=== PATIENT | female | born 1985 | race Caucasian/White ===

== ENCOUNTER 2019-06-17 12:28 | Outpatient (CLI) | payer SELFPAY | END 2019-06-17 14:05 | PROVIDERS: Family Provider Family Medicine; Visit Provider Obstetrics & Gynecology | DX: O26.899 Other specified pregnancy related conditions, unspecified trimester (principal); Z3A.00 Weeks of gestation of pregnancy not specified; N89.8 Other specified noninflammatory disorders of vagina | CPT/HCPCS: 76815; 81001; 99211 ×2 ==

== ENCOUNTER → 2019-07-21 16:09 | Outpatient (BNVA) | payer BC, MEDICAID, SELFPAY | PROVIDERS: Family Provider Family Medicine; PCP Family Medicine; Visit Provider Obstetrics & Gynecology | DX: Z34.83 Encounter for supervision of other normal pregnancy, third trimester (principal) | CPT/HCPCS: 82950; 84315; 85027 ==

== ENCOUNTER → 2019-08-04 15:11 | Outpatient (BNVA) | payer BC, MEDICAID, SELFPAY | PROVIDERS: Family Provider Family Medicine; PCP Family Medicine; Visit Provider Obstetrics & Gynecology | DX: Z01.89 Encounter for other specified special examinations (principal) | CPT/HCPCS: 84315 ==

== ENCOUNTER → 2019-08-18 15:26 | Outpatient (BNVA) | payer BC, MEDICAID, SELFPAY | PROVIDERS: Family Provider Family Medicine; PCP Family Medicine; Visit Provider Obstetrics & Gynecology | DX: Z01.89 Encounter for other specified special examinations (principal) | CPT/HCPCS: 84315 ==

== ENCOUNTER → 2019-09-02 13:58 | Outpatient (BNVA) | payer BC, MEDICAID, SELFPAY | PROVIDERS: Family Provider Family Medicine; PCP Family Medicine; Visit Provider Nurse Practitioner Women's Health | DX: Z01.89 Encounter for other specified special examinations (principal) | CPT/HCPCS: 84315 ==

== ENCOUNTER → 2019-09-15 15:23 | Outpatient (BNVA) | payer MEDICAID, SELFPAY | PROVIDERS: Family Provider Family Medicine; PCP Family Medicine; Visit Provider Obstetrics & Gynecology | DX: Z34.83 Encounter for supervision of other normal pregnancy, third trimester (principal) | CPT/HCPCS: 84315; 87081 ==

== ENCOUNTER → 2019-09-18 15:59 | Outpatient (BNVA) | payer MEDICAID, SELFPAY | PROVIDERS: Family Provider Family Medicine; PCP Family Medicine; Visit Provider Obstetrics & Gynecology | DX: Z34.83 Encounter for supervision of other normal pregnancy, third trimester (principal); O34.211 Maternal care for low transverse scar from previous cesarean delivery | CPT/HCPCS: 76816 ==

== ENCOUNTER → 2019-09-22 11:26 | Outpatient (BNVA) | payer BC, MEDICAID, SELFPAY | PROVIDERS: Family Provider Family Medicine; PCP Family Medicine; Visit Provider Obstetrics & Gynecology | DX: Z46.89 Encounter for fitting and adjustment of other specified devices (principal) | CPT/HCPCS: 84315 ==

== ENCOUNTER 2019-09-23 06:14 | Observation (INO) | payer MEDICAID, SELFPAY ==
[2019-09-23 06:37] VITALS: RESP 18; TEMP 36.7
[2019-09-23 06:39] VITALS: BMI 30.7
--- NOTE | 2019-09-23 06:41 | PC.NURSE ---
Bedside ultrasound performed at this time, breech presentation noted
[2019-09-23 07:02] LABS: Basophils % 0.3 %; Eosinophils # 0.2 10^3/uL (0.0-0.8); Eosinophils % 1.5 %; Hemoglobin 11.6 g/dL (11.5-15.3); Lymphocytes # 1.7 10^3/uL (0.8-4.8); Lymphocytes % 14.9 %; Mean Corpuscular HGB Conc 31.4 g/dL (30.0-36.0); Mean Corpuscular Hemoglobin 26.4 pg (28.0-34.0); Mean Corpuscular Volume 84.1 fL (81-99); Mean Platelet Volume 10.4 fL (7.4-10.4); Monocytes # 0.9 10^3/uL (0.2-0.9); Monocytes % 7.7 %; Neutrophils # 8.7 10^3/uL (1.8-7.7); Neutrophils % 74.1 %; Nucleated Red Blood Cells % 0 %; Platelet Count 280 10^3/cmm (130-400); Red Cell Distribution Width 14.1 % (12.1-15.1); White Blood Count 11.7 10^3/uL (4.0-10.0)
[2019-09-23] MEDS: terbutaline 1 mg/mL INJ 0.25 MG SUBCUT (08:12)
--- NOTE | 2019-09-23 09:07 | PC.NURSE ---
Lex Florentino RN and this insurance underwriter sales in pt room at 0823 at bedside to set up and start version,pt was then prepped with ultrasound gel on abdomen to check placement of fetus, fetus head was breech with feet next to the head. 0825 with the help of the ultrasound machine to locate heart rate and head placement, placed her hands on abdomen with gel and started the version. every 2 minutes we would check fetus heart rate and head placement.version complete at 0832
[2019-09-23 11:53] VITALS: BP 111/64; PULSE 105; RESP 18; TEMP 36.8
--- NOTE | 2019-09-23 14:53 | P.PCN_ITS ---
Procedure/Consent Consent: Consent for Procedure: Consent obtained from patient Procedure Narrative: Ms. Charlton is a 34-year-old 4 para 3-0-0-3 at 37 weeks and 3 days gestation who presented to labor and delivery for scheduled external cephalic version. Her history significant for previous delivery x1 and she desired . Her baby was in a santos breech presentation with adequate fluid and appropriate for gestational age and after extensive co unseling she desired to proceed with external cephalic version as she was very motivated to try to have a baby vaginally. The procedure, risks benefits and alternatives were discussed with her informed consent was obtained -She presented n.p.o. to labor and delivery on 09/23/2019 for scheduled procedure and had no new complaints. -Bedside scanning she was noted to be breech. tracing was reactive- category 1 tracing. She had no contractions on the monitor. -She was given a single dose of terbutaline subcutaneously and after 10 minutes we presented to bedside. Vital signs were stable and tracing was category 1. Monitors were removed from the patient's abdomen and lubricant was generously applied on the abdomen. The breech was grasped with the right hand and at the head with the left hand and the ultrasound probe was placed over the belly over the heart and good movement was noted. In a clockwise movement taking care not to cause too much pain the breech was elevated and moved. This was done consistently although while monitoring heart rate which was noted to be within normal limits. The baby shifted to cephalic presentation. Sonogram done confirm cephalic presentation. Heart rate was noted to be in the 150s during the procedure and patient was placed back on the monitor and category 1 tracing was noted. Patient tolerated the procedure well. -She was observed on labor and delivery for 3 additional hours after the procedure and during this time continue to remain category 1 and had no pain, vaginal bleeding or abnormal discharge. There were no contractions noted on the monitor. -She was discharged home in a stable condition with plans to perform BPP on 09/25/2019. -She was given precautions for the emergency room, vaginal bleeding, abruption and premature rupture of membranes -Follow-up as scheduled for doctor's appointment.
== END 2019-09-23 12:09 | disposition home or self-care (01) ==
PROVIDERS: Admitting Provider Obstetrics & Gynecology; Family Provider Family Medicine; PCP Family Medicine; Visit Provider Obstetrics & Gynecology
DX: O32.1XX0 Maternal care for breech presentation, not applicable or unspecified (principal); Z3A.37 37 weeks gestation of pregnancy
CPT/HCPCS: 59412; 12345; 59025; 85025; 96372; 99211; G0378; G0379; J3105

== ENCOUNTER → 2019-09-25 10:14 | Outpatient (BNVA) | payer MEDICAID, SELFPAY | PROVIDERS: Family Provider Family Medicine; PCP Family Medicine; Visit Provider Obstetrics & Gynecology | DX: Z36.89 Encounter for other specified antenatal screening (principal) | CPT/HCPCS: 76816; 76819 ==

== ENCOUNTER → 2019-09-29 13:30 | Outpatient (BNVA) | payer BC, MEDICAID, SELFPAY | PROVIDERS: Family Provider Family Medicine; PCP Family Medicine; Visit Provider Obstetrics & Gynecology | DX: Z01.89 Encounter for other specified special examinations (principal) | CPT/HCPCS: 84315 ==

== ENCOUNTER → 2019-10-06 14:22 | Outpatient (BNVA) | payer MEDICAID, BC, SELFPAY | PROVIDERS: Family Provider Family Medicine; PCP Family Medicine; Visit Provider Obstetrics & Gynecology | DX: Z34.83 Encounter for supervision of other normal pregnancy, third trimester (principal) | CPT/HCPCS: 84315 ==

== ENCOUNTER 2019-10-17 03:00 | Inpatient (IN) | payer BC, MEDICAID, SELFPAY ==
[2019-10-17] VITALS (100 sets, daily range): BP systolic 0–150; BP diastolic 0–92; PULSE 75–122; RESP 15–18; TEMP 36.4–37.2; O2SAT 85–100; BMI 30.7
[2019-10-17 03:36] LABS: Basophils % 0.2 %; Eosinophils # 0.1 10^3/uL (0.0-0.8); Eosinophils % 0.9 %; Hematocrit 36.8 % (37.0-47.0); Hemoglobin 11.7 g/dL (11.5-15.3); Lymphocytes # 2.6 10^3/uL (0.8-4.8); Lymphocytes % 21.2 %; Mean Corpuscular HGB Conc 31.8 g/dL (30.0-36.0); Mean Corpuscular Hemoglobin 26.7 pg (28.0-34.0); Mean Corpuscular Volume 83.8 fL (81-99); Mean Platelet Volume 11.2 fL (7.4-10.4); Monocytes # 0.8 10^3/uL (0.2-0.9); Monocytes % 6.4 %; Neutrophils # 8.4 10^3/uL (1.8-7.7); Neutrophils % 70.1 %; Nucleated Red Blood Cells % 0 %; Platelet Count 267 10^3/cmm (130-400); Red Blood Count 4.39 10^6/uL (4.1-5.3); Red Cell Distribution Width 14.9 % (12.1-15.1)
[2019-10-17 04:09] LABS: Nitrazine Paper, PH Positive
--- NOTE | 2019-10-17 09:17 | P.HP_ITS ---
Providers/Chief Complaint Admitting Physician: Yonis Langley MD Primary SAFETY ADVISOR: Yonis Langley MD Primary Care Provider: Daisy Doherty MD Chief Complaint: poss rupture of membrane HPI SAFETY ADVISOR History of Present Illness Dianna Charlton is a 34 year old female white female 4, Para 3-0-0-3 with an LMP of 01/03/2019 and EDC of 10/10/2019 based on LMP and consistent with 20-week ultrasound, which places her at 41-0/7 weeks gestation. She presented to labor and delivery this morning, 10/17/2019, at 02:50 with a complaint of possible leaking of fluid. She reported feeling a gush of fluid and is continued to leak afterwards. On evaluation, she was found to be grossly ruptured. Cervical exam at the time by the nurse was reported to be 4 cm dilation, 80% effacement, and a -3 station. She was connie every 1 to 4 minutes at the time and contractions have switched to approximately 2 to 4 minutes in timing. She denies bright red bleeding, but has noticed a pinkish discharge today. She states she is continued to leak fluid. She reports contractions are getting stronger but not to the point that she is wanting anything from pain standpoint. She reports baby has been moving well. LABS 07/04/2012: Cystic fibrosis: Screen negative. 03/21/2019 Blood type: O positive. Antibody screen: Negative. Intake CBC: WBC 10.5, Hgb 12.5, Hct 36.7, MCV 82.7, Plt 331. Rubella: Immune (22). Hepatitis B surface antigen: Negative. Hepatitis C antibody: Negative. RPR: Nonreactive. HIV: Negative. Urine drug screen: Negative. Urine culture: 40-50,000 CFU, mixed organisms. 04/04/2019 Gonorrhea: Negative. Chlamydia: Negative. Pap smear: Negative for intraepithelial lesion or malignancy. Parvovirus IgG-4.7-[id number]-wfketymu Parvovirus IgM 0.6-bwwsfqfh-no acute infection 04/30/2019 Quad screen: Declined 07/21/2019 28 week CBC: WBC 11.2, Hgb 11.0, Hct 35.0, MCV 87.9, Plt 285. GCT: 136. 3/ GBS: negative OB ULTRASOUND LMP 01/03/2019 ---> EDC 10/10/2019. 1. 05/28/2019 ---> 20-2/7 WG ---> EDC 10/13/2019. EFW 12 oz. (344 g) 25%. Performed at [facility]. Consistent with dates. Normal anatomic survey. Male. Cephalic. FHR 150 bpm. Anterior placenta without previa. Grade 1. Visually normal amniotic fluid volume. INSPECTOR CIRCUITRY NEGATIVE 6.0 cm. Cervix 5.7 cm. 2. 06/17/[address] ( [facility] bleeding/pain[place] SLIP; breech presentation; cervix measures 6.25 cm; placenta is anterior grade 0; FEDE adequate; FHR 150 bpm 3) 09/18/19([facility]-breech) AUA-36w6d RADHA by sono-10/10/19 S=D ------> single live intrauterine , santos breech presentation, anterior grade 1 placenta without previa, FEDE 18.8 cm, INSPECTOR CIRCUITRY NEGATIVE 5.3 cm, EFW 3090 g, cervix is closed measuring 6 cm Review of Systems Const: Denies: fever or chills ENMT: Denies: throat pain or nasal congestion Card: Denies: chest pain, palpitations or lightheadedness Resp: Denies: shortness of breath, productive cough, non-productive cough or wheezing GI: Reports: abdominal pain (With contractions); Denies: nausea or vomiting : Reports: urinary frequency and vaginal bleeding; Denies: difficulty urinating or painful urination Neuro: Denies: headache, dizziness or seizure-like activity Psych: Denies: anxiety or depression Endo: Denies: excessive urination, excessive thirst or cold intolerance Merlin/Lymph: Denies: easy bruising or easy bleeding Medications/Allergies Home Medications Medication Instructions Recorded Confirmed Last Taken Type prenat.vits,adolfo,usj-oxuh-rpsck 1 tab PO DAILY tab 06/25/19 10/17/19 10/16/19 09:00 History Allergies Allergy/AdvReac Type Severity Reaction Status Date / Time amoxicillin Allergy Rash Verified 10/13/19 14:20 Sulfa (Sulfonamide Allergy Rash Verified 10/13/19 14:20 Antibiotics) PFSH SAFETY ADVISOR PFSH: Medical History Blood type O+ Surgical History Previous section (01/10/13) Low transverse section. Diagnosis: Santos breech, Unsuccessful version. Per[place] Dr. Yonis Langley [place] [facility] [place], [place]. Confirmed LTCS with 2 layer closure. Family History Mother Hypertension Family/Other Breast cancer Maternal great aunt Father Hypertension Grandfather Heart disease Paternal and maternal Stroke maternal Social History Smoking and tobacco status: never smoked Alcohol intake: never Substance/Drug Use: never Additional social history: Well balanced diet Other Female Reproductive History: Hx Age of Menarche: 14 Duration of menses: other (5 days) Date of Last Menstrual Period: 01/03/19 Cycle Length: every 35-38 days Menstrual flow: normal/abnormal: normal History History History 4 Term 3 Miscarriages/Ectopic 0 0 Living Children 3 Past Pregnancies Del. Date GA/Weeks Outcome Route Wt Inf Gender Labor Lgth Comp. Anesth esia Location 06/01/10 40 live - full term Vaginal 7 lb 5 oz Female 01/10/13 39 live - full term 7 lb 7 oz Female 11/15/17 40 live - full term 8 lb 10 oz Male Delivery Date: 06/01/10 On 06/25/19 @ 09:14 Cris Mcdonough Epidural anesthesia, no complications. Delivered by Dr. Yonis Langley at [facility] in [place], [place] Delivery Date: 01/10/13 On 06/25/19 @ 09:17 Cris Mcdonough delivery with spinal anesthesia, performed for santos breech presentation with unsuccessful version. Delivered by Dr. Yonis Langley at [facility] in [place], [place]. Delivery Date: 11/15/17 On 06/25/19 @ 09:20 Cris Mcdonough Epidural. Vacuum assisted vaginal delivery (). Delivered by Dr. Agosto at [facility] in [place], [place]. bradycardia with pushing resulting in use of Kiwi vacuum. Care RADHA Calculator Estimated Delivery Date Method Current WG Current Estimate 10/10/19 LMP (Certain) 41w 0d Other Estimates 10/13/19 Ultrasound #1 40w 4d Expected Delivery Route/Plan desires Specific Issues/Plans * Previous LTCS with successful OB Visit Log Initial Weight: 168 lb Date -?-?-?-?-?-?-?-?-?-?-?- EGA Weight BP Albumin -?-?-?-?-?-?-?-?-?-?-?-?- Glucose Nitrate -?-?-?-?-?-?-?-?-?-?-?-?- Blood Fun Ht PRES HR MVMT -?-?-?-?-?-?-?-?-?-?- Edema Dilation Effacement -?-?-?-?-?-?-?-?-?-?-?- Station 03/07/19 -?-?-?-?-?-?-?-?-?-?-?- 9w 0d 168 lb (+0 oz) 133/80 Trace/Normal -?-?-?-?-?-?-?-?-?-?-?-?- Negative -?-?-?-?-?-?-?-?-?-?-?-?- -?-?-?-?-?-?-?-?-?-?- None -?-?-?-?-?-?-?-?-?-?-?- 03/21/19 -?-?-?-?-?-?-?-?-?-?-?- 11w 0d 169 lb (+16 oz) 116/68 Negative/Normal -?-?-?-?-?-?-?-?-?-?-?-?- Negative -?-?-?-?-?-?-?-?-?-?-?-?- 172 -?-?-?-?-?-?-?-?-?-?- None -?-?-?-?-?-?-?-?-?-?-?- 04/04/19 -?-?-?-?-?-?-?-?-?-?-?- 13w 0d 172 lb (+4 lb) 118/78 Negative/Normal -?-?-?-?-?-?-?-?-?-?-?-?- Negative -?-?-?-?-?-?-?-?-?-?-?-?- 154 -?-?-?-?-?-?-?-?-?-?- None Closed Uneffaced -?-?-?-?-?-?-?-?-?-?-?- 04/30/19 -?-?-?-?-?-?-?-?-?-?-?- 16w 5d 175 lb (+7 lb) 100/62 Negative/Normal -?-?-?-?-?-?-?-?-?-?-?-?- Negative -?-?-?-?-?-?-?-?-?-?-?-?- 147 None -?-?-?-?-?-?-?-?-?-?- None -?-?-?-?-?-?-?-?-?-?-?- 05/30/19 -?-?-?-?-?-?-?-?-?-?-?- 21w 0d 182 lb (+14 lb) 112/78 Negative/Normal -?-?-?-?-?-?-?-?-?-?-?-?- Negative -?-?-?-?-?-?-?-?-?-?-?-?- 145 Present -?-?-?-?-?-?-?-?-?-?- None -?-?-?-?-?-?-?-?-?-?-?- 06/27/19 -?-?-?-?-?-?-?-?-?-?-?- 25w 0d 182 lb (+14 lb) 118/70 Neg (Negative ) -?-?-?-?-?-?-?-?-?-?-?-?- Norm (Normal) Negative (Negat stefan) -?-?-?-?-?-?-?-?-?-?-?-?- 156 25 156 active -?-?-?-?-?-?-?-?-?--?- absent -?-?-?-?-?-?-?-?-?-?-?- 07/21/19 -?-?-?-?--?-?-?-?-?-?-?- 28w 3d 188 lb 6 oz (+20 lb 6 oz) 118/74 1+ (Negati ve) H -?-?-?-?-?-?-?-?-?-?-?-?- Norm (Normal) Negative (Negat stefan) -?-?-?-?-?-?-?-?-?-?-?-?- 30 142 active -?-?-?-?-?-?-?-?-?-?- absent -?-?-?-?-?-?-?-?-?-?-?- 08/04/19 -?-?-?-?-?-?-?-?-?-?-?- 30w 3d 190 lb 2 oz (+22 lb 2 oz) 114/72 Trace (Neg ative) -?-?-?-?-?-?-?-?-?-?-?-?- Norm (Normal) Negative (Negat stefan) -?-?-?-?-?-?-?-?-?-?-?-?- 31 159 active -?-?-?-?-?-?-?-?-?-?- absent -?-?-?-?-?-?-?-?-?-?-?- 08/18/19 -?-?-?-?-?-?-?-?-?-?-?- 32w 3d 193 lb (+25 lb) 118/78 Neg (Negative ) -?-?-?-?-?-?-?-?-?-?-?-?- Norm (Normal) Negative (Negat stefan) -?-?-?-?-?-?-?-?-?-?-?-?- Neg (Negative) 33 139 act stefan -?-?-?-?-?-?-?-?-?-?- absent -?-?-?-?-?-?-?-?--?-?-?- 09/02/19 -?-?-?-?-?-?-?-?-?-?-?- 34w 4d 195 lb (+27 lb) 118/80 Neg (Negative ) -?-?-?-?-?-?-?-?-?-?-?-?- Norm (Normal) Negative (Negat stefan) -?-?-?-?-?-?-?-?-?-?-?-?- Neg (Negative) 35 138 act stefan -?-?-?-?-?-?-?-?-?-?- absent -?-?-?-?-?-?-?-?-?-?-?- 09/15/19 -?-?-?-?-?-?-?-?-?-?-?- 36w 3d 196 lb (+28 lb) 110/70 Neg (Negative ) -?-?-?-?-?-?-?-?-?-?-?-?- Norm (Normal) Negative (Negat stefan) -?-?-?-?-?-?-?-?-?-?-?-?- Neg (Negative) 36.5 Breech 140 active -?-?-?-?-?-?-?-?-?-?- Absent Fingertip 0 -?-?-?-?-?-?-?-?-?-?-?- 09/22/19 -?-?-?-?-?-?-?-?-?-?-?- 37w 3d 196 lb (+28 lb) 128/78 Trace (Negati ve) -?-?-?-?-?-?-?-?-?-?-?-?- Norm (Normal) Negative (Negat stefan) -?-?-?-?-?-?-?-?-?-?-?-?- Neg (Negative) 38 Breech 152 active -?-?-?-?-?-?-?-?-?-?- absent Fingertip 0 -?-?-?-?-?-?-?-?--?-?-?- 09/29/19 -?-?-?-?-?-?-?-?-?-?-?- 38w 3d 199 lb (+31 lb) 124/70 Neg (Negative ) -?-?-?-?-?-?-?-?-?-?-?-?- Norm (Normal) Negative (Negat stefan) -?-?-?-?-?-?-?-?-?-?-?-?- Neg (Negative) 36.8 Vertex 136 active -?-?-?-?-?-?-?-?-?-?- trace Fingertip 0 -?-?--?-?-?-?-?-?-?-?-?- -4 10/06/19 -?-?-?-?-?-?-?-?-?-?-?- 39w 3d 199 lb 4 oz (+31 lb 4 oz) 118/74 Neg (Negat stefan) -?-?-?-?-?-?-?-?-?-?-?-?- Norm (Normal) Negative (Negat stefan) -?-?-?-?-?-?-?-?-?-?-?-?- Neg (Negative) 36.5 38.5 vertex 133 active -?-?-?-?-?-?-?-?-?-?- trace 1 0 -?-?-?-?-?-?-?-?-?-?-?- -5 10/13/19 -?-?-?-?-?-?-?-?-?-?-?- 40w 3d 201 lb 4 oz (+33 lb 4 oz) 120/88 Neg (Negat stefan) -?--?-?-?-?-?-?-?-?-?-?-?- Norm (Normal) Negative (Negat stefan) -?-?-?-?-?-?-?-?-?-?-?-?- Neg (Negative) 39 vertex 136 active -?-?-?-?-?-?-?-?-?-?- trace 1 0 -?-?-?-?-?-?-?-?-?-?-?- -3 10/17/19 -?-?-?-?-?-?-?-?-?-?-?- 41w 0d 196 lb (+28 lb) 196 lb (+28 lb) 129/92 129/83 0/0 136/80 0/0 117/57 0/0 0/0 109/66 112/59 113/71 119/75 116/74 -?-?-?-?-?-?-?-?-?-?-?-?- -?-?-?-?-?-?-?-?-?-?-?-?- Vertex Vertex Vertex Vertex 140 140 135 135 135 130 -?-?-?-?-?-?-?-?-?-?- -?-?-?-?-?-?-?-?-?-?-?- -3 -3 -3 -2 Notes Visit Date: 10/17/19 No visit notes to display Visit Date: 10/13/19 No visit notes to display Visit Date: 10/06/19 tawnya prather MD on 10/06/19 Visit Date: 09/29/19 ELAINE at 38+3 weeks status post external cephalic version last week. Infant continued to be in vertex presentation. Labor precautions given. Cornelio Agosto MD on 09/29/19 Visit Date: 09/22/19 ELAINE@ 37w3d----> vulvar pruritus-yeast infection-prescription Diflucan; previous delivery x1-desires ; santos breech presentation-version versus repeat discussed and patient desires version which was schedule d for 09/23/2019-counseling done; GBS negative Heather Wick MD on 09/22/19 Visit Date: 09/15/19 ELAINE@ 36w3d----> no complaints; previous delivery x1 with 1 successful -desires ; GBS today; santos breech presentation today-repeat sonogram at 37 weeks-ECV versus repeat discussed and information provided to patient-patient likely desires ECV Heather Wick MD on 09/21/19 Visit Date: 09/02/19 ELAINE at 34.4 WG-----> Travel restrictions discussed. labor precautions reviewed. Kick counts reviewed and encouraged. Repeat --planning . GBS at next visit. Strongly recommended social distancing and limited exposure outside of the home. Cris Oliva APN, WHEDGARDO on 09/02/19 Visit Date: 08/18/19 ROP at 32-3/7 weeks gestation. labor precautions discussed with patient. Pelvic pressure and discomfort discussed. Yonis Langley MD on 08/22/19 Visit Date: 08/04/19 No visit notes to display Visit Date: 07/21/19 No visit notes to display Visit Date: 06/27/19 No visit notes to display Visit Date: 05/30/19 ELAINE at 21-0/7 WG. ?No complaints. ?Flu vaccine recommended. ?Screening ultrasound reviewed and was preliminarily normal. Visit Date: 04/30/19 ELAINE @ 16w 5d-----> no complaints; previous delivery ?1- considering trial of labor; declined quad; parvovirus testing reviewed with patient; negative gonorrhea and Chlamydia and Pap smear; anatomy sonogram prior to next visit; SAB precautions reviewed Visit Date: 04/04/19 OB exam at 13-0/7 WG. ?Consistent with dates. ?Pap, GC, Chlamydia today. ?Possible exposure to fifth's disease. ?Antibody testing performed. Visit Date: 03/21/19 OB visit at 11-0/7 WG based on LMP. ?No complaints. ? labs drawn. ?Prior LTCS with successful . ?Considering again. ?Considering sterilization. ?OB exam in approximately 2 weeks. Visit Date: 03/07/19 OBI at 9.0 WG------> 34 y/o with LMP of 01/03/19 and EDC of 10/10/19 -Previous C/S with successful to follow; last delivery was with vaccuum assistance -Ob packet provided. Reviewed routine vist schedule, labs, approved medications in , discussed the importance of avoiding nicotine/alcohol/drugs and the effects this has on her and the , and when to notify the doctor. Medical and obstetrical history reviewed. ? -Continue vitamins. -Mild nausea; dietary and medical management discussed - labs at next visit; discussed NIPT, QUAD, AFP, CF. All questions answered to her satisfaction. Greater than 50% of the visit was spent in counseling and coordinating obstetrical care. Vitals/I&O/Wt Last Vital Signs Temp 98.1 F 10/17/19 09:02 Pulse 97 10/17/19 08:47 Resp 16 10/17/19 09:02 BP 119/75 10/17/19 08:47 10/16/19 10/17/19 10/17/19 22:59 06:59 14:59 Output Total 250 / 250 Balance -250 / -250 Weight last 48 hrs Weight 196 lb Weight 196 lb Physical Exam Const: COMMON NORMALS: no apparent distress, average body habitus, alert and well nourished GENERAL APPEARANCE: well developed ORIENTATION/CONSCIOUSNESS: Yes oriented to person, Yes oriented to place and Yes oriented to time Neck/C-Spine: COMMON NORMALS: thyroid normal GENERAL: Yes trachea midline THYROID: thyroid normal Resp: COMMON NORMALS: normal respiratory effort and clear to auscultation bilaterally AUSCULTATION: clear to auscultation bilaterally Cardio: COMMON NORMALS: regular rate, regular rhythm, no gallops, no murmurs and no rub RATE: regular rate RHYTHM: regular rhythm GI: COMMON NORMALS: soft to palpation, non-tender, no hepatosplenomegaly and no masses (Except for gravid uterus.) INSPECTION: Yes gravid abdomen AUSCULTATION: Yes normoactive bowel sounds PALPATION: Yes soft, Yes no hepatosplenomegaly and No hernia : EXTERNAL FEMALE EXAM: No hernia OTHER: External genitalia: Normal in appearance with no lesions seen. Normal hair distribution. Anus/perineum: No perineal lesions noted. Urethral meatus: Normal in size and location with no lesions or prolapse noted Urethra: Nontender with no palpable masses noted. Bladder: Nontender with no palpable masses noted. Vagina: No palpable masses. Cervix: 4 to 5 cm dilated, 70% effaced, -2 station, soft, mid position. Fluid leaked during the exam. Uterus: Gravid and nontender. Adnexa: Not palpable Neuro: SENSORIUM/ORIENTATION: Yes alert, Yes oriented to person, Yes oriented to place and Yes oriented to time Psych: COMMON NORMALS: affect normal MOOD & AFFECT: Yes euthymic mood Skin: COMMON NORMALS: no rashes or lesions noted GENERAL SKIN EXAM: no rashes or lesions noted Data : 10/17/19 03:25 Other data: MONITORING: heart rate in the 140s with moderate variability and accelerations present which meet reactivity. No decelerations noted. This is a category 1 tracing. Contractions are every 2-1/2 to 4 minutes. A&P Assessment and plan (1) Maternal care due to low transverse uterine scar from previous delivery: Patient is at 41-0/7 weeks gestation today. She was originally scheduled to be induced today for postterm . However, she presented to labor and delivery early this morning with complaint of leaking of fluid and was found to be grossly ruptured. She is connie regularly, but fairly mildly at this time. She has had a prior section for santos breech presentation and has had a successful vaginal after section () following that. She had had a vaginal delivery prior to the as well. She is considered a good candidate for a and wishes to attempt this again. Risks of versus repeat section had been previously discussed and was reviewed today with the patient and her partner. Questions were answered. They still wish to proceed with . Potential augmentation of labor was discussed with them. Risks of Pitocin use with prior section had been previously discussed in the office and reviewed today. Anesthesia options were reviewed and at this time, she is not interested in any type of pain medication. She is considering an epidural for later in the labor course. Questions were answered. Patient and her partner are in agreement with the plan of care regarding attempted and labor augmentation with Pitocin if needed. Status: Acute Attestations Medical Necessity Statement*: Patient is in labor with her water broke. Coding Level of Care Code Acute Christian Counselor for Francie Phelps Diagnoses Maternal care due to low transverse uterine scar from previous delivery O34.211
[2019-10-17] MEDS: oxytocin 30 UNIT/500 ML BAG IV (12:06)
[2019-10-17] MEDS: dextrose 5%-lactated ringers 1,000 ML 125 ML IV (12:06)
[2019-10-17] MEDS: lactated ringers 1,000 ML 999 ML IV ×2 (12:29→13:36)
--- NOTE | 2019-10-17 12:34 | PC.NURSE ---
lr bolus started for epidural
[2019-10-17] MEDS: fentaNYL 50 mcg/mL INJ 2mL IV (12:47)
--- NOTE | 2019-10-17 13:40 | ANES.PREANE2 ---
Pre-Anesthetic Assessment Pre-Anesthetic Assessment: Height/Weight: Height 1.7 m Weight 88.904 kg Temp Pulse Resp BP Pulse Ox 98.4 F 97 17 138/75 98 10/17/19 13:38 10/17/19 13:36 10/17/19 13:38 10/17/19 13:36 10/17/19 13:35 Preop Diagnosis: IUP Proposed Procedure: Lumbar Labor Epidural Was Beta Brianne taken within 24 hours: N/A Social: Social History: No alcohol and No tobacco Exam: Pre-Anes Outpt Exam: alert, oriented x 3, clear to auscultation bilaterally and regular rate & rhythm Airway: Submandibular: WNL Cervical ROM: WNL MP: 2 Dentition: Full History/ROS: No significant history except as noted and No significant complaints Pulmonary: Pulmonary: None reported CV/HEM: CV/HEM: None reported : : None reported Hepatic: Hepatic: None reported GI: GI: None reported Metabolic: Metabolic: None reported Musc/skel: Musc/skel: None reported Neuropsych: Neuropsych: None reported Anesthetic Plan: ASA status: 2 Anesthesia: General and Regional (specify below) (Epidural/Spinal) Meds/Allergies Current Medications: Current Medications Generic Name Dose Route Start Last Admin Trade Name Freq PRN Reason Stop Dose Admin Fentanyl 25 - 100 mcg 10/17/19 03:10 10/17/19 12:47 Sublimaze IV 25 mcg Q1H PRN Administration SEVERE PAIN Dextrose/Lactated Ringer's 1,000 mls @ 125 m ls/hr 10/17/19 03:15 10/17/19 12:34 Dextrose 5%-Lact ated Ringers IV 0 mls/hr .Q8H LEXA Infusion Lactated Ringer's 1,000 mls @ 999 m ls/hr 10/17/19 03:10 10/17/19 13:36 Lactated Ringers IV 999 mls/hr .Q1H1M PRN Administration Per L&D Rescitati on Protocol Oxytocin 30 unit in 500 ml s @ 1 mls/hr 10/17/19 11:45 10/17/19 12:06 Pitocin IV 1 milliunit/min .Q24H LEXA 1 mls/hr Administration Protocol 1 MILLIUNIT/MIN Ropivacaine 200 mg in 100 mls @ 13 mls/hr 10/17/19 12:30 10/17/19 13:36 Naropin Premix EPIDURAL 12 mls/hr .Q7H42M LEXA Administration PFSH Anesthesia PFSH: Medical History Blood type O+ Surgical History Previous section (01/10/13) Low transverse section. Diagnosis: Kristofer breech, Unsuccessful version. Performed by Dr. Yonis Langley at [facility] in [place], [place]. Confirmed LTCS with 2 layer closure. Family History Mother Hypertension Family/Other Breast cancer Maternal great aunt Father Hypertension Grandfather Heart disease Paternal and maternal Stroke maternal Social History Smoking and tobacco status: never smoked Alcohol intake: never Substance/Drug Use: never Additional social history: Well balanced diet Female Reproductive History: : 4 Data Anesthesia CBC & Chem 7: 10/17/19 03:25 Other Labs: Laboratory Results - last 48 hr 10/17/19 03:25 WBC 12.0 H RBC 4.39 Hgb 11.7 Hct 36.8 L MCV 83.8 MCH 26.7 L MCHC 31.8 RDW 14.9 Plt Count 267 MPV 11.2 H Neut % (Auto) 70.1 Lymph % (Auto) 21.2 [place] % (Auto) 6.4 Eos % (Auto) 0.9 Baso % (Auto) 0.2 Neut # (Auto) 8.4 H Lymph # (Auto) 2.6 [place] # (Auto) 0.8 Eos # (Auto) 0.1 Baso # (Auto) 0.0 Nucleated RBC % (auto) 0 Nucleated RBCs # 0.0 Cardiac Studies: No Data to Display Anesthesia Procedures Epidural: Time Out Performed: Yes Consents Signed: Procedure Consent Consent: from patient, risks and benefits reviewed and patient agrees to proceed Lumbar Level: L4-L5 Epidural position: sitting Epidural procedure: sterile prep of area, 1% lidocaine to numb the area (5), 18 g needle, negative for paresthesia passed, neg for paresthesia, test dose given, 1.5% xylocaine 1:200k epi (5), 0.2% Ropivacaine bolus ml (10), placed PCEA (5cc q10min x 3), no systemic response, sterile dressing applied, L.U.D. no apparent complications and 0.2% Ropiavacaine @ mls/hr (12) Additional Comments: Called to OB for epidural placement, pt eval and assessed for placement and explained procedure. Pt agrees to proceed. placed to 5cm in space and tolerated well. Bolused over 7 min and VSS throughout per nursing chart. Last BP 111/60. Pain much improved.
--- NOTE | 2019-10-17 17:31 | PM.DELIVERY ---
 Delivery Note: Date of delivery: October 17, 2019 Pre-delivery diagnoses: 1. Prior section, desires , 2. Term at 41-0/7 weeks gestation Post-delivery diagnoses: 1. Prior section, successful delivery, 2. Term at 41-0/7 weeks gestation, 3. Viable male Procedure: Vaginal after section Op report anesthesia: Epidural Delivering Physician: Dr. Yonis Langley Estimated blood loss (mL): 100 Pre-Delivery Course: 4, para 3-0-0-3 with an LMP of 01/03/2019 and an EDC of 10/10/2019 based on LMP and consistent with a 20-week ultrasound, which placed her at 41-0/7 weeks gestation. She had had a prior section with 1 prior successful . She was planning to attempt again. She presented to L&D at 02:50 on 10/17/2019 with a complaint of leaking of fluid. She was confirmed as having ruptured membranes. She reported contractions starting after this. On presentation to L&D she was noted to be 80% effaced, 4 cm dilated, and a -3 station. She was connie every 1 to 4 minutes with mild contractions. She was monitored through the rest of the night and by late morning had made minimal change. As a result, Pitocin augmentation was started. She became more uncomfortable and had epidural placed. She started making cervical change and was found to be completely dilated at 17:04. Baby was reassuring through the labor course. Delivery: Patient started pushing at 17:12 and delivered at 17:15 as a spontaneous vaginal delivery of an occiput anterior male over an intact perineum under epidural anesthesia. Following delivery of the infant's head, one loop of nuchal cord was noted and easily reduced. The rest the delivered atraumatically with the left shoulder anterior. was placed on the mother's abdomen. Cord was clamped and cut. Baby was left in the care of the waiting nurses. Cord blood was obtained. Pitocin bolus was started. Placenta delivered intact by simple expression at 17:21. Cervix and vagina were palpated and noted to be intact. Labia were inspected and noted to be intact except for superficial skin separation which required no repair. FINDINGS 1. Viable male infant, weighing 8 lbs 14 oz (4015 g), length 21 inches, Apgars 7 at 1 minute and 9 at 5 minutes. 2. Three-vessel cord with one loop of nuchal cord noted. 3. Normal-appearing placenta with an eccentric cord insertion. Post-Delivery Status: Mother and infant left to recover in satisfactory condition. A&P Assessment and plan (1) Maternal care due to low transverse uterine scar from previous delivery: Status: Acute Coding Level of Care Code Acute Professional Soccer Player for Chg Fwd Diagnoses Maternal care due to low transverse uterine scar from previous delivery O34.211
[2019-10-18 01:20] VITALS: BP 112/72; PULSE 82; RESP 16; TEMP 36.9
[2019-10-18 05:18] VITALS: BP 110/70; PULSE 82; RESP 16; TEMP 36.5
[2019-10-18 05:27] LABS: Mean Corpuscular HGB Conc 32.4 g/dL (30.0-36.0); Mean Corpuscular Hemoglobin 26.9 pg (28.0-34.0); Mean Corpuscular Volume 83.1 fL (81-99); Mean Platelet Volume 10.7 fL (7.4-10.4); Platelet Count 223 10^3/cmm (130-400); Red Blood Count 4.09 10^6/uL (4.1-5.3)
[2019-10-18 07:16] VITALS: BP 109/66; PULSE 80; RESP 16; O2SAT 98
[2019-10-18] MEDS: docusate sodium 100 mg Capsule PO (09:11)
[2019-10-18] MEDS: prenatal vitamin Capsule 1 CAP PO (09:11)
[2019-10-18 11:07] VITALS: BP 120/80; PULSE 84; RESP 17; TEMP 36.6
--- NOTE | 2019-10-18 15:58 | PM.DCS ---
Discharge Providers Date of Admission: 10/17/19 03:00 Date of Discharge: October 18, 2019 Attending Provider at Admission: Yonis Langley MD Attending Provider at Discharge: Yonis Langley MD Primary Care Provider: Daisy Doherty MD Diagnoses at Discharge Discharge Diagnosis (1) Vaginal after , delivered, current hospitalization: Status: Acute (2) Maternal care due to low transverse uterine scar from previous delivery: Status: Acute Reason for Visit Reason for Visit: Reason For Visit: poss rupture of membrane Hospital Course Hospital Course: Patient is a 34-year-old white female 4, para 3-0-0-3 with an LMP of 01/03/2019 and an EDC of 10/10/2019 based on LMP and consistent with a 20-week ultrasound, which placed her at 41-0/7 weeks gestation at the time of admission. Patient had had a prior section with 1 prior successful . She was planning to attempt again. She presented to labor and delivery on 10/17/2019 at 0250 with complaint of leaking of fluid. She was found to be ruptured. Her cervix was 4 cm dilated and 80% effaced at the time. She was connie mildly every 1 to 4 minutes. She continued to contract through the night but had made only minimal change by the morning. She was continued to be watched in the morning and was eventually started on Pitocin augmentation at around noon. She became more uncomfortable following this and received an epidural. She continued to progress and was found to be completely dilated at 1704. She delivered at 1715 as a spontaneous vaginal delivery of an occiput anterior male infant over an intact perineum under epidural anesthesia. The baby weighed 8 pounds 14 ounces (4015 g) with a length of 21 inches and Apgars of 7 at 1 minute and 9 at 5 minutes. She had superficial perineal abrasions, which required no repair. Both mother and infant did well following the delivery. DAY 1 Patient reports doing well. She states that her pain is been well controlled with the ibuprofen. She denied any lightheadedness or dizziness with ambulation. She denied any shortness of breath or chest pains. She reports tolerating a regular diet without nausea and vomiting. She denies any problems with urination. She states that her bleeding has slowed. She is breast-feeding. She is requesting to go home this evening. PHYSICAL EXAM: See below. PLAN Discharge to home. Discharge instructions discussed with patient. Patient to follow-up in the office in approximately 6 weeks. control options were discussed and she is considering her options. Physical Exam Const: COMMON NORMALS: no apparent distress, average body habitus, alert and well nourished GENERAL APPEARANCE: well developed ORIENTATION/CONSCIOUSNESS: Yes oriented to person, Yes oriented to place and Yes oriented to time Resp: COMMON NORMALS: normal respiratory effort and clear to auscultation bilaterally AUSCULTATION: clear to auscultation bilaterally Cardio: COMMON NORMALS: regular rate, regular rhythm, no gallops, no murmurs and no rub RATE: regular rate RHYTHM: regular rhythm GI: COMMON NORMALS: soft to palpation, non-tender, no hepatosplenomegaly and no masses (Except for nontender palpable uterus approximately 2 fingerbreadths below umbilicus) AUSCULTATION: Yes normoactive bowel sounds PALPATION: Yes soft, Yes no hepatosplenomegaly and No hernia : EXTERNAL FEMALE EXAM: No hernia Extremity: COMMON NORMALS: no clubbing, cyanosis or edema and no calf tenderness NARRATIVE EXTREMITY EXAM: Trace to 1+ lower extremity edema bilaterally Neuro: SENSORIUM/ORIENTATION: Yes alert, Yes oriented to person, Yes oriented to place and Yes oriented to time Psych: COMMON NORMALS: affect normal MOOD & AFFECT: Yes euthymic mood Urinary Catheter Management^: To: Cath Placed During This Visit: yes, but has since been removed by the nurse Reason for Continuing Indwelling Catheter: Required Immobilization for Trauma or Surgery or Anesthesia Urinary Catheter Date of Insertion: 10/17/19 Urinary Catheter Time of Insertion: 14:00 Date Urinary Catheter Removed: 10/17/19 Time Urinary Catheter Discontinued: 17:09 Discharge Data Data Completed and Pending: Labs from last 24 hours 10/18/19 05:18 WBC 15.0 H RBC 4.09 L Hgb 11.0 L Hct 34.0 L MCV 83.1 MCH 26.9 L MCHC 32.4 RDW 15.0 Plt Count 223 MPV 10.7 H Vitals: Last Vital Signs Temp 97.8 F 10/18/19 11:07 Pulse 84 10/18/19 11:07 Resp 17 10/18/19 11:07 BP 120/80 10/18/19 11:07 Pulse Ox 98 10/18/19 07:16 Discharge Plan Discharge Patient Disposition: Home, Self-Care Condition: Stable Prescriptions: New ibuprofen 800 mg Tablet 800 mg PO TID PRN (Reason: pain) Qty: 40 RF: 0 Continued prenat.vits,adolfo,llx-vufc-skeed Tablet 1 tab PO DAILY RF: 0 Discharge Orders: Discharge Order (Routine); Ordered 10/18/19 Ordered By: Yonis Langley Referrals: Yonis Langley MD [Physician] - 6 Weeks Discharge Diet: Regular Discharge Activity: Resume usual activity Patient Instructions: Your Baby (GEN), and the Working Mom (GEN), How to Hold and Breastfeed Your Baby (GEN), and Nipple Soreness (GEN), Breast Fullness Versus Breast Engorgement (GEN), and Plugged Ducts (GEN), How to Tell if Your Baby is Getting Enough Breast Milk (GEN), and Your Diet (GEN), Vaginal Delivery (GEN), OB Discharge Report, OB Food/Drug Interaction Guide Discharge Attestations Time Spent in Discharge Care*: less than 30 min Quality Metrics Clinical Quality Measures During this hospital stay, did patient experience: None Coding Level of Care Code Acute Dental Appliance Fixer for Chg Fwd Diagnoses Vaginal after , delivered, current hospitalization O34.219 Maternal care due to low transverse uterine scar from previous delivery O34.211
[2019-10-18 18:19] VITALS: BP 115/72; PULSE 84; RESP 16; TEMP 36.8
== END 2019-10-18 18:20 | disposition home or self-care (01) | DRG 807 ==
LOC: OPOB 17:26
PROVIDERS: Admitting Provider Obstetrics & Gynecology; Family Provider Family Medicine; PCP Family Medicine; Visit Provider Obstetrics & Gynecology
DX: O34.211 Maternal care for low transverse scar from previous cesarean delivery (principal); Z37.0 Single live birth; Z3A.41 41 weeks gestation of pregnancy; O69.1XX0 Labor and delivery complicated by cord around neck, with compression, not applicable or unspecified
CPT/HCPCS: 12345; 36415; 51702; 59025; 59409; 83986; 85025; 85027; 99211; J2795; J3010

== ENCOUNTER 2021-05-01 10:53 | Emergency (ER) | payer BC, MEDICAID, SELFPAY ==
[2021-05-01 11:20] VITALS: BP 134/80; PULSE 88; RESP 18; TEMP 36.8; O2SAT 98; BMI 25.3
[2021-05-01 12:50] LABS: Add Urine Microscopic? NO; Charge for UA Resulting for Rev
[2021-05-01 12:57] LABS: Basophils # 0.1 10^3/uL (0.0-0.1); Basophils % 0.7 %; Eosinophils # 0.1 10^3/uL (0.0-0.8); Eosinophils % 1.8 %; Hematocrit 38.6 % (37.0-47.0); Lymphocytes # 1.4 10^3/uL (0.8-4.8); Lymphocytes % 20.9 %; Mean Corpuscular HGB Conc 31.1 g/dL (30.0-36.0); Mean Corpuscular Hemoglobin 25.8 pg (28.0-34.0); Mean Platelet Volume 9.6 fL (7.4-10.4); Monocytes # 0.6 10^3/uL (0.2-0.9); Monocytes % 9.1 %; Neutrophils # 4.61 10^3/uL (1.8-7.7); Neutrophils % 67.2 %; Nucleated Red Blood Cells % 0 %; Platelet Count 420 10^3/cmm (130-400); Red Blood Count 4.65 10^6/uL (4.1-5.3); Red Cell Distribution Width 14.8 % (12.1-15.1); White Blood Count 6.9 10^3/uL (4.0-10.0)
[2021-05-01 13:10] LABS: Bilirubin Urine 1+ (Negative); Blood Urine Neg (Negative); Glucose Urine UA Norm (Normal); HCG Qualitative Urine. Negative (Negative); Ketones Urine 1+ (Negative); Leukocyte Esterase Urine Negative (Negative); Nitrate Urine Negative (Negative); Protein Urine Neg (Negative); Urine Appearance Clear (CLEAR); Urine Color Yellow (Yellow); Urobilinogen Urine 1 mg/dL (Negative); pH Urine 5 (5-7)
[2021-05-01 13:14] LABS: Albumin Level 4.3 g/dL (3.5-5.2); Alkaline Phosphatase 218 IU/L (35-105); Anion Gap 16.3 (5-19); Aspartate Amino Transferase 314 U/L (0-32); Blood Urea Nitrogen 5 mg/dL (6-20); Calcium 8.9 mg/dL (8.5-10.5); Carbon Dioxide 24 mmol/L (22-29); Chloride 101 mmol/L (98-107); Globulin 3.6 g/dL (1.3-4.6); Glomerular Filtration Rate 141.2 mL/min (90-130); Glucose 88 mg/dL (65-115); Osmolality Calculated 281 mOsm/kg (285-295); Potassium 4.3 mmol/L (3.5-5.1); Sodium 137 mmol/L (136-145); Total Bilirubin 1.7 mg/dL (0.15-1.2); Total Protein 7.9 g/dL (6.6-8.7)
[2021-05-01 13:26] LABS: Alanine Aminotransferase 841 U/L (0-33)
--- NOTE | 2021-05-01 13:42 | ECG_ITS ---
[facility] Test Date: 2021-05-01 Pat Name: Dianna Charlton Department: Room: Gender: Female Physical Therapy Director: : 1985 Requested By: Cornelio Rubio Order Number: [id number] Paulino MD: Jenelle Grijalva M.D. Measurements Intervals [place] Rate: 81 P: 87 WI: 180 QRS: 93 QRSD: 90 T: 71 QT: 368 QTc: 428 Interpretive Statements SINUS RHYTHM WITH SINUS ARRHYTHMIA BORDERLINE RIGHT AXIS DEVIATION [QRS AXIS > 90] NONSPECIFIC T-WAVE ABNORMALITY No previous ECG available for comparison Electronically Signed On 05-03-2021 13:12:58 HEMMER CHAINSTITCH by Jenelle Grijalva M.D. [email or web address] parma medical centerProNurse Homecare & Infusion/[id number] f
--- NOTE | 2021-05-01 13:44 | ED_ITS ---
HPI - Abdominal Pain General: Chief Complaint: Abdominal Pain Stated Complaint: R LOWER ABD PAIN Time Seen by Provider: 05/01/21 13:11 History of Present Illness: HPI narrative: This patient presents to the emergency department because of concerns about progressive upper abdominal pain. She states the symptoms of been present off and on for last 2 weeks. She seems to associate some relationship to eating certain foods. She states the pain is predominantly in the right upper abdomen radiates across her abdomen at times and certainly radiates to her mid back. She states that she had some mild discomfort similarly at the end of her last but has not had any prior to that. She states the symptoms have significantly worsened and caused her to lose sleep be nauseated. She has not vomited or had diarrhea with this pain. She states she had some GI illness a few weeks ago and had some diarrhea but no sequelae from that illness. She is not been exposed to any infectious disease, recent travel, recent antibiotic use. She has no history of gastroesophageal reflux. She is a non-smoker and rarely drinks alcohol. No one else is ill at home. She did have a gallbladder ultrasound at her primary care office recently which was reportedly normal. She has taken some omeprazole last couple of days which has not helped much. She has noted that intermittently she will notice that her urine is dark but seems to clear when she increases her fluid intake. MD elicited complaint: abdominal pain Associated Symptoms: Reports belching; Denies change in stool character, chills, dysuria, fever(s), hematochezia, hematemesis and melena Related Data: Date of Last Menstrual Period: 04/12/21 Review of Systems Const: Denies: fever(s), chills or change in appetite Eyes: Denies: change in vision ENMT: Denies: throat pain or odynophagia Card: Denies: chest pain, palpitations or irregular heart rhythm Resp: Denies: dyspnea, productive cough, non-productive cough or wheezing GI: Reports: abdominal pain and belching; Denies: hematemesis, change in stool character, hematochezia or melena : Denies: flank pain, difficulty voiding, dysuria or urinary frequency Musc: Reports: back pain; Denies: neck pain, extremity pain, extremity swelling, joint pain or joint swelling Skin/Breast: Denies: rash, pruritus or erythema Neuro: Denies: headache(s), numbness in extremities or weakness in extremities Psych: Denies: anxiety or depression Endo: Denies: polyuria or polydipsia PFSH ED PFSH: Medical History No pertinent past medical history Denies diabetes, asthma, hypertension, seizures, DVT/PE PCP: Dr. Doherty Surgical History Previous section (01/10/13) Low transverse section. Diagnosis: Kristofer breech, Unsuccessful version. Performed by Dr. Yonis Langley at [facility] in [place], [place]. Confirmed LTCS with 2 layer closure. Family History (Updated 04/21/21 @ 14:23 by Heather Wick MD) Mother Hypertension Family/Other Breast cancer Maternal aunt Father Hypertension Grandfather Heart disease Paternal and maternal Stroke maternal Denies family history of Colon cancer Diabetes Hyperlipidemia Uterine cancer Thyroid condition Social History (Updated 04/21/21 @ 14:22 by Heather Wick MD) Other details last substance use: Denies drug use Additional social history: Well balanced diet Female Reproductive History: Date of last menstrual period: 04/12/21 Physical Exam Const: COMMON NORMALS: no acute distress, average body habitus, patient oriented x3, healthy appearing and well nourished HENMT: COMMON NORMALS: normocephalic HEAD & SCALP: normocephalic FACE & SINUS: normal facial exam MOUTH: Normal oral and palatal mucosa present Eye: COMMON NORMALS: Equal, round and reactive pupils present, EOMs intact bilaterally and conjunctivae normal CONJUNCTIVA: Yes conjunctivae normal PUPIL: Yes Equal, round and reactive pupils present Neck/C-Spine: COMMON NORMALS: full ROM, no lymphadenopathy, supple, no meningeal signs and no JVD Lymph: LYMPHATIC: no lymphadenopathy noted Chest: COMMONS NORMALS: normal inspection of the chest and normal palpation of entire chest wall Resp: COMMON NORMALS: normal respiratory effort, No retractions and No use of accessory muscles Cardio: COMMON NORMALS: no JVD, regular rate, regular rhythm and No murmurs present (Cardio) RATE: regular rate RHYTHM: regular rhythm GI: COMMON NORMALS: Soft to palpation and No hepatosplenomegaly present INSPECTION: Yes normal to inspection AUSCULTATION: Yes normoactive bowel sounds PALPATION: Yes Soft to palpation, Yes Tenderness to palpation present (GI) (Mild right upper quadrant tenderness), Yes No hepatosplenomegaly present and No Rebound tenderness present : COMMON NORMALS: Yes no CVA tenderness BLADDER/KIDNEY EXAM: Yes no CVA tenderness Back/Pelvis: COMMON NORMALS: no CVA tenderness, thoracic and lumbar spine normal to inspection, no thoracic nor lumbar tenderness and thoraco-lumbar ROM normal Extremity: COMMON NORMALS: normal to inspection, full ROM, capillary refill normal, no calf tenderness and no pedal edema Neuro: COMMON NORMALS: patient oriented x3, moves all extremities, no focal motor deficits and no sensory deficits noted MENINGEAL SIGNS: Yes no meningeal signs SPEECH: speech normal Psych: COMMON NORMALS: mental status grossly normal, Normal thought process present and cooperative THOUGHT PROCESS: Normal thought process present Course Reevaluation(s): Reevaluation #1: Patient remains improved and stable at this time. No evidence to suggest an acute surgical abdomen, acute cholecystitis etc. at this time. Her hepatitis panel is negative which leads I to the conclusion that her transaminitis and other laboratory findings are related to her biliary tract issue and cholelithiasis. The general surgeon, Dr. Magallon, will be able to see her later this week for further evaluation and determination of best course of therapy whether that be cholecystectomy etc. I discussed expected course, return precautions with both patient and accompanying mother. She voiced understanding of our discussion. We will provide her a course of Levsin to use for symptoms. Time: 15:51 Consultations: Consultation #1: Discussed current findings with attending general surgery on-call. We reviewed current findings. Will contact reading radiologist and have him give us more definitive information regarding the biliary tree and make further decisions based upon that interpretation whether she needs an MRCP or can be followed as an outpatient. Consultation #2: Discussed with Dr. Mcclellan the reading radiologist of for her abdominal CT. We reviewed his opinion on findings of the biliary tree and he did not note anything of concern to include any ductal dilatation or any other acute biliary tree pathology other than the stones as noted. Time: 15:37 Vital Signs: Vital signs: Vital Signs Temperature 98.2 F 05/01/21 11:20 Pulse Rate 76 05/01/21 14:11 Respiratory Rate 18 05/01/21 11:20 Blood Pressure 125/73 05/01/21 14:11 Pulse Oximetry 99 05/01/21 14:11 MDM - Abdominal Pain Lab Data: Labs: Lab Results 05/01/21 05/01/21 05/01/21 12:15 12:15 12:51 WBC 6.9 10^3/uL 10^3/ uL (4.0-10.0) RBC 4.65 10^6/uL 10^6 /uL (4.1-5.3) Hgb 12.0 g/dL g/dL (11.5-15.3) Hct 38.6 % % (37.0-47.0) MCV 83.0 fl fl (81-99) MCH 25.8 pg L pg (28.0-34.0) MCHC 31.1 g/dL g/dL (30.0-36.0) RDW 14.8 % % (12.1-15.1) Plt Count 420 10^3/cmm H 10 ^3/cmm (130-400) MPV 9.6 fL fL (7.4-10.4) Neut % (Auto) 67.2 % % Lymph % (Auto) 20.9 % % [place] % (Auto) 9.1 % % Eos % (Auto) 1.8 % % Baso % (Auto) 0.7 % % Neut # (Auto) 4.61 10^3/uL 10^3 /uL (1.8-7.7) Lymph # (Auto) 1.4 10^3/uL 10^3/ uL (0.8-4.8) [place] # (Auto) 0.6 10^3/uL 10^3/ uL (0.2-0.9) Eos # (Auto) 0.1 10^3/uL 10^3/ uL (0.0-0.8) Baso # (Auto) 0.1 10^3/uL 10^3/ uL (0.0-0.1) Nucleated RBC % (a uto) 0 % % Nucleated RBCs # 0.0 /100WBC /100W BC Sodium Potassium Chloride Carbon Dioxide Anion Gap BUN Creatinine GFR Calculation Glucose Calculated Osmolal ity Calcium Total Bilirubin AST ALT Alkaline Phosphata se Total Protein Albumin Globulin HCG, Qual Negative (Negative) Urine Color Yellow (Yellow) Urine Appearance Clear (CLEAR) Urine pH 5 (5-7) Ur Specific Gravit y 1.010 (1.005-1.030) Urine Protein Neg (Negative) Urine Glucose (UA) Norm (Normal) Urine Ketones 1+ H (Negative) Urine Blood Neg (Negative) Urine Nitrate Negative (Negative) Urine Bilirubin 1+ H (Negative) Urine Urobilinogen 1 mg/dL H mg/dL (Negative) Ur Leukocyte Kirsten ase Negative (Negative) Hepatitis A IgM Ab Hep Bs Antigen Hep Bs Antibody Hep B Core Total A b Hepatitis C Antibo dy 05/01/21 05/01/21 12:51 12:51 WBC RBC Hgb Hct MCV MCH MCHC RDW Plt Count MPV Neut % (Auto) Lymph % (Auto) [place] % (Auto) Eos % (Auto) Baso % (Auto) Neut # (Auto) Lymph # (Auto) [place] # (Auto) Eos # (Auto) Baso # (Auto) Nucleated RBC % (a uto) Nucleated RBCs # Sodium 137 mmol/L mmol/L (136-145) Potassium 4.3 mmol/L mmol/L (3.5-5.1) Chloride 101 mmol/L mmol/L (98-107) Carbon Dioxide 24 mmol/L mmol/L (22-29) Anion Gap 16.3 (5-19) BUN 5 mg/dL L mg/dL (6-20) Creatinine 0.5 mg/dL mg/dL (0.5-0.9) GFR Calculation 141.2 mL/min H mL /min (90-130) Glucose 88 mg/dL mg/dL (65-115) Calculated Osmolal ity 281 mOsm/kg L mOs m/kg (285-295) Calcium 8.9 mg/dL mg/dL (8.5-10.5) Total Bilirubin 1.7 mg/dL H mg/dL (0.15-1.2) AST 314 U/L H U/L (0-32) ALT 841 U/L H U/L (0-33) Alkaline Phosphata se 218 IU/L H IU/L (35-105) Total Protein 7.9 g/dL g/dL (6.6-8.7) Albumin 4.3 g/dL g/dL (3.5-5.2) Globulin 3.6 g/dL g/dL (1.3-4.6) HCG, Qual Urine Color Urine Appearance Urine pH Ur Specific Gravit y Urine Protein Urine Glucose (UA) Urine Ketones Urine Blood Urine Nitrate Urine Bilirubin Urine Urobilinogen Ur Leukocyte Kirsten ase Hepatitis A IgM Ab Non-reactive (Nonreactive) Hep Bs Antigen Non-reactive (Nonreactive) Hep Bs Antibody < 3.5 L (11.5-1000) Hep B Core Total A b Non-reactive (Nonreactive) Hepatitis C Antibo dy Non-reactive (Nonreactive) EKG Data ^: EKG 1: Attestation: I personally reviewed and interpreted this EKG as follows: (EKG performed at 1408 reveals normal sinus rhythm with a ventricular rate of 81 bpm. She has a borderline rightward axis of 93 degrees but otherwise normal intervals normal QRSs. No acute ST-T wave changes noted.) Discharge Plan Discharge Patient Disposition: Home Clinical Impression: Transaminitis Cholelithiasis Qualifiers: Cholelithiasis location: gallbladder Cholecystitis presence: without cholecystitis Biliary obstruction: without biliary obstruction Qualified Code(s): K80.20 - Calculus of gallbladder without cholecystitis without obstruction Condition: Stable Prescriptions: New Levsin 0.125 mg tablet 0.125 mg PO Q6H PRN (Reason: dyspepsia) Qty: 20 RF: 0 Discharge Orders: Discharge ED (Routine); Ordered 05/01/21 Ordered By: Cornelio Rubio Referrals: Daisy Doherty MD [Primary Care Provider] - Naren Magallon MD [Physician] - 1-3 days (As we discussed re pt with cholelithasis) Discharge Diet: Low Cholesterol and Low Fat Discharge Activity: Resume usual activity Patient Instructions: Opioid Safety Activity Restrictions/Additional Instructions: Resume a diet as tolerated. You may use the medications prescribed to help with any gallbladder discomfort. Should you develop fever, increasing unremitting pain, inability eat or other concerns return to this or the nearest emergency department otherwise call the general surgeon tomorrow to arrange an appointment for later this week. Coding Level of Care Code ED Roll Trucker for Chg Fwd Exam Comprehensive
[2021-05-01 13:50] VITALS: BP 129/78; PULSE 89; O2SAT 100
--- NOTE | 2021-05-01 13:54 | CTR_ITS ---
PROCEDURE INFORMATION: Exam: CT Abdomen And Pelvis With Contrast Exam date and time: 05/01/2021 1:54 PM Age: 36 years old Clinical indication: Abdominal pain; Localized; Right upper quadrant (ruq); Additional info: Worsening upper abd pain with transaminase elevation-neg US TECHNIQUE: Imaging protocol: Computed tomography of the abdomen and pelvis with contrast. Axial, coronal and sagittal reformatted images were created and reviewed. Radiation optimization: All CT scans at this facility use at least one of these dose optimization techniques: automated exposure control; mA and/or kV adjustment per patient size (includes targeted exams where dose is matched to clinical indication); or iterative reconstruction. Contrast material: OMNI 300; Contrast volume: 95 ml; Contrast route: INTRAVENOUS (IV); COMPARISON: US gall bladder [id number] 04/26/2021 8:17 AM RADIATION DOSE METRICS: Total DLP (mGy-cm): 1203.16 FINDINGS: Lungs: Left lower lobe reticulonodular infiltrates with associated bronchiectatic change, suggestive of chronic aspiration. Liver: Unremarkable. Gallbladder and bile ducts: Cholelithiasis. Pancreas: Unremarkable. Spleen: Unremarkable. Adrenal glands: Normal. No mass. Kidneys and ureters: No mass. No radiodense calculi. No hydronephrosis. Stomach and bowel: No bowel wall thickening. No obstruction. No pneumatosis. Appendix: Normal. Intraperitoneal space: No free fluid. No organized fluid collection. No free air. Vasculature: Unremarkable. No aneurysm. Lymph nodes: Small mesenteric lymph nodes, nonspecific in appearance. No pathologically enlarged lymph nodes. Urinary bladder: Unremarkable as visualized. Reproductive: Unremarkable. Bones/joints: No acute osseous abnormality. Soft tissues: Unremarkable. CT/CT abdomen pelvis w con* [id number]: 1[address] evidence of acute intra-abdominal or pelvic pathology. 2. Additional findings, as above. Radiation Dose CTDIVOL = (mGy): DLP = 1203.16 (mGy-cm)
[2021-05-01] MEDS: ondansetron 2 mg/ML SDV 2 mL 4 MG IVP (14:08)
[2021-05-01 14:11] VITALS: BP 125/73; PULSE 76; O2SAT 99
[2021-05-01] MEDS: iohexol 300 mg/mL 100 mL Btl IV (14:35)
[2021-05-01 14:43] LABS: Hepatitis A Antibody IgM Non-Reactive (Nonreactive); Hepatitis B Core AB, Total Non-Reactive (Nonreactive); Hepatitis B Surface Antigen Non-Reactive (Nonreactive); Hepatitis C Virus Antibody Non-Reactive (Nonreactive)
[2021-05-01 15:27] LABS: Hepatitis B Surface AB < 3.5 (11.5-1000)
== END 2021-05-01 16:11 | disposition home or self-care (01) ==
PROVIDERS: Emergency Provider Emergency Medicine; PCP Family Medicine
DX: K80.20 Calculus of gallbladder without cholecystitis without obstruction (principal); R74.01 Elevation of levels of liver transaminase levels
CPT/HCPCS: 74177; 80053; 81003; 81025; 85025; 86705; 86706; 86709; 86803; 87340; 93005; 96374; 99283; J2405; Q9967

== ENCOUNTER → 2021-05-06 09:01 | Outpatient (BNVA) | payer BC, SELFPAY | PROVIDERS: PCP Family Medicine; Visit Provider Surgery | DX: Z01.812 Encounter for preprocedural laboratory examination (principal); Z20.822 Contact with and (suspected) exposure to COVID-19; K80.20 Calculus of gallbladder without cholecystitis without obstruction; R74.01 Elevation of levels of liver transaminase levels | CPT/HCPCS: 80053; 83690; 85025; 87635 ==

== ENCOUNTER 2021-05-09 07:38 | Outpatient (CLI) | payer OTHER, SELFPAY ==
--- NOTE | 2021-05-09 07:43 | MR_ITS ---
WS: [id number] MRCP (MAGNETIC RESONANCE CHOLANGIOPANCREATOGRAPHY) HISTORY: K80.20 - Calculus of gallbladder without cholecystitis COMPARISON: 05/01/2021 and 04/26/2021 TECHNIQUE: Multiple sequences are performed to evaluate the intra and extrahepatic ducts. Several filling defects are noted within the gallbladder lumen and a small amount of layering sludge. Several stones are present. One of the stones is at the gallbladder neck. No adjacent inflammation. No wall thickening or pericholecystic fluid. Common bile duct is normal caliber measuring up to 4 mm. Cystic duct is not dilated. Pancreatic duct is normal. No ascites. Liver is normal size. Normal portal vein. Normal size and hepatic veins. MR/MR MRCP [id number] IMPRESSION: 1. Cholelithiasis. Numerous stones are present in the gallbladder with a small amount of sludge. 2. Normal common bile duct.
== END 2021-05-09 07:39 | disposition home or self-care (01) ==
LOC: RADSHAW 07:40
PROVIDERS: PCP Family Medicine; Visit Provider Surgery
DX: K80.20 Calculus of gallbladder without cholecystitis without obstruction (principal); R74.8 Abnormal levels of other serum enzymes
CPT/HCPCS: 74181

== ENCOUNTER 2021-05-09 08:51 | Day surgery (SDC) | payer BC, MEDICAID, SELFPAY ==
[2021-05-06 16:11] VITALS: BMI 24.9
[2021-05-09] VITALS (14 sets, daily range): BP systolic 97–134; BP diastolic 41–92; PULSE 56–132; RESP 16–25; TEMP 36.6–37.3; O2SAT 94–100
--- NOTE | 2021-05-09 09:18 | W.PM.OPSUD ---
Surgery/Procedure H&P Update DATE OF PROCEDURE: May 09, 2021 DATE H&P PERFORMED: 05/03/21 H&P UPDATE INFORMATION: I have reviewed H&P completed within last 30 days, I have examined patient prior to procedure and No changes to prior documentation PREOP DIAGNOSIS: IUP PLANNED PROCEDURE: Operation Date: 05/09/21 10:15 Proposed Procedures p Laparoscopic poss Open Cholecystectomy 88042 K80.20(Not Applicable) - Dada Pedro MD
[2021-05-09] MEDS: sodium chloride 0.9% 1,000 ML 30 ML IV (09:22)
--- NOTE | 2021-05-09 09:53 | ANES.PREANE2 ---
Pre-Anesthetic Assessment Pre-Anesthetic Assessment: Height/Weight: Height 1.7 m Weight 72.121 kg Temp Pulse Resp BP Pulse Ox 98.8 F 132 H 18 120/88 98 05/09/21 09:01 05/09/21 09:01 05/09/21 09:01 05/09/21 09:01 05/09/21 09:01 Preop Diagnosis: IUP Proposed Procedure: Operation Date: 05/09/21 10:15 Proposed Procedures p Laparoscopic poss Open Cholecystectomy 31617 K80.20(Not Applicable) - Dada Pedro MD Familial anesthetic complications: Aunt experienced awareness Was Beta Brianne taken within 24 hours: N/A Was Clonidine taken within 24 hours: N/A Last intake: Intake Last Liquid Date 05/08/21 Last Liquid Time 23:00 Last Solid Date 05/08/21 Last Solid Time 20:00 Social: Social History: No alcohol and No tobacco Exam: Pre-Anes Outpt Exam: alert, oriented x 3, clear to auscultation bilaterally and regular rate & rhythm Airway: Cervical ROM: WNL MP: 3 Dentition: Other (crowns) GI: GI: GERD Anesthetic Plan: ASA status: 2 Anesthesia: General Risk of > 500 ml blood loss (7ml/kg in children): No Meds/Allergies Current Medications: Current Medications Generic Name Dose Route Start Last Admin Trade Name Freq PRN Reason Stop Dose Admin Sodium Chloride 1,000 mls @ 30 ml s/hr 05/09/21 09:00 05/09/21 09:22 Sodium Chloride 0.9% IV 05/10/21 08:59 30 mls/hr .Q24H LEXA Administration PFSH Anesthesia PFSH: Surgical History Previous section (01/10/13) Low transverse section. Diagnosis: Kristofer breech, Unsuccessful version. Performed by Dr. Yonis Langley at [facility] in [place], [place]. Confirmed LTCS with 2 layer closure. Family History Mother Hypertension Family/Other Breast cancer Maternal aunt Father Hypertension Grandfather Heart disease Paternal and maternal Stroke maternal Denies family history of Colon cancer Diabetes Hyperlipidemia Uterine cancer Thyroid condition Social History Smoking and tobacco status: never smoked Other details last substance use: Denies drug use Additional social history: Well balanced diet Female Reproductive History: Date of last menstrual period: 04/12/21 Data Anesthesia Cardiac Studies: No Data to Display
[2021-05-09] MEDS: levofloxacin-dextrose 5 % 500 MG/100 ML PREMIX 100 MG IV (10:46)
--- NOTE | 2021-05-09 11:44 | PM.OP ---
Operative Report Date of procedure: May 09, 2021 Pre-op Diagnosis: Cholelithiasis Elevated LFT MRCP: Cholelithiasis Post-op diagnosis: same Procedure Done: Laparoscopic cholecystectomy Specimens removed/disposition: Gallbladder Surgeon: Dada Pedro Anesthesia: General Condition: stable Disposition: PACU Procedure: The patient was taken to the operating room and was intubated under general anesthesia. After the antibiotic had been administered, the abdomen was prepped and draped in a sterile manner. Using a #15 blade, a 1 centimeter infraumbilical curvilinear incision was made and using an open Lexi technique the peritoneal cavity was entered. A 10 millimeter port was placed and 15 millimeters of pneumoperitoneum was created. A 10 millimeter, 30 degrees scope was then introduced. Three 5 millimeter ports were placed in the epigastric, midclavicular and the anterior axillary line two fingerbreadths below the costal margin on the right side under the direct visualization. Ratcheted forceps were introduced into the lateral most port and was used to retract the fundus of the gallbladder cephalad and using forceps the infundibulum of the gallbladder was retracted laterally. Using L-hook cautery the peritoneum overlying the Calot's triangle was opened medially and laterally until the cystic duct and the cystic artery were skeletonized. Dissection was carried along the body of the gallbladder and after ensuring critical view of safety, 4 clips applied on the cystic duct and 3 clips applied on the cystic artery and cut leaving, 3 clips on the remaining portion of the duct and 2 clips on the remaining portion of the artery. The rest of the gallbladder was dissected off the liver using L-hook cautery. There was no bleeding or bile leaking noted from the gallbladder fossa and the clips appeared to be in place. An EndoCatch bag was introduced to remove the gallbladder. All the ports were removed under direct visualization and there was no bleeding noted from the port sites. The fascia of the umbilicus was closed using [id number] 0 Vicryl sutures and the subcutaneous tissue was approximated using 3-0 Vicryl sutures. The skin at all four ports were closed using 4-0 Monocryl and Dermabond. A total of 10 millimeters of 0.5% Marcaine was infiltrated around the port sites. The patient was stable throughout the procedure.
[2021-05-09] MEDS: fentaNYL 50 mcg/mL INJ 2mL IVP (12:06)
--- NOTE | 2021-05-09 12:09 | SUR.PHASEI ---
1205 pt ready to go to ops area but now awakes and c/o of pain to abd pt clutching abd grimicing. see med given, vss.
[2021-05-09] MEDS: HYDROcodone-acetaminophen 5-325 mg Tablet 1 TAB PO (12:45)
--- NOTE | 2021-05-09 14:51 | ANE.PACU2 ---
Inpatient post-anesthesia follow up: Airway intact: Yes Vital signs: Temperature 99.1 F Pulse Rate 75 Respiratory Rate 17 Blood Pressure 97/65 Pulse Oximetry 99 Oxygen Delivery Me thod Room Air Oxygen Flow Rate 8 Fraction of Inspir ed Oxygen Hydration adequate: Yes Nausea and vomiting: No Pain level: 1 Mental status: Baseline
== END 2021-05-09 13:05 | disposition home or self-care (01) ==
PROVIDERS: PCP Family Medicine; Visit Provider Surgery
PROC: 0FT44ZZ Resection of Gallbladder, Percutaneous Endoscopic Approach (ICD-10-PCS; CPT 47562; principal; 2021-05-09 10:15)
DX: R10.11 Right upper quadrant pain (principal); R11.2 Nausea with vomiting, unspecified
CPT/HCPCS: 47562; 81025; 88304; J1100; J1885; J1956; J2250; J2405; J2704; J3010; J3490; J7030

== ENCOUNTER 2021-05-21 20:25 | Emergency (ER) | payer OTHER, BC, MEDICAID, SELFPAY ==
[2021-05-21 20:36] VITALS: BP 114/74; PULSE 101; RESP 16; TEMP 36.9; O2SAT 97
--- NOTE | 2021-05-21 21:39 | W.ED.FEVER ---
Documented by User: Barry Hardwick MD 05/27/21 01:06 HPI - Fever General: Chief Complaint: Fever Stated Complaint: Fever, Surgery a week ago Time Seen by Provider: 05/21/21 21:39 History of Present Illness: HPI Narrative: Ms. Charlton is a 36-year-old female without significant past medical history with recent significant surgical history of laparoscopic cholecystectomy on 05/09/2021 who presents to the emergency department due to fevers. Symptom onset was 4 to 5 days ago. Since that time the patient has daily fevers mostly in the morning and evening. This is typically in the 101 ?F range however today was 103 degrees Fahrenheit taken forehead and under her arm. She has treated symptoms with Tylenol and ibuprofen. Overall the course of symptoms has persisted. She does have positive sick exposures and does note upper respiratory symptoms including sore throat and enlarged lymph nodes in her neck. No other known changes in health, specific source of infection, exacerbating or alleviating factors identified. Review of Systems General: Reports: 10 or more systems reviewed and unremarkable except in HPI and below PFSH ED PFSH: Surgical History Previous section (01/10/13) Low transverse section. Diagnosis: Kristofer breech, Unsuccessful version. Performed by Dr. Yonis Langley at [facility] in [place], [place]. Confirmed LTCS with 2 layer closure. Status post laparoscopic cholecystectomy (05/09/21) Family History Mother Hypertension Family/Other Breast cancer Maternal aunt Father Hypertension Grandfather Heart disease Paternal and maternal Stroke maternal Denies family history of Colon cancer Diabetes Hyperlipidemia Uterine cancer Thyroid condition Social History Other details last substance use: Denies drug use Additional social history: Well balanced diet Female Reproductive History: Date of last menstrual period: 04/12/21 Physical Exam Narrative: EXAM NARRATIVE: GENERAL/CONSTITUTIONAL -mildly ill-appearing. No acute distress. Eyes - PERRL, no conjunctival injection ENMT - Atraumatic external nose and ears. Erythematous posterior pharynx. Moist mucous membranes NECK - supple. trachea midline. Mildly tender lymphadenopathy in the anterior chain CARDIOVASCULAR - regular rate and rhythm. Peripheral pulses 2+ and equal RESPIRATORY -coarse to auscultation bilaterally. No retractions or accessory muscle use. ABDOMEN/GI - Nontender/Nondistended. Surgical incisions appear well-healing without evidence of cellulitis. No tenderness to percussion or evidence of peritonitis MSK - Extremities without obvious deformity or tenderness to palpation SKIN - Warm, Dry NEURO - alert and appropriately oriented. Moves all extremities equally. Course ED course: - Patient was seen and evaluated by me at bedside - Patient placed on cardiac monitors, IV access obtained - Initial evaluation notable for exam as noted above - Symptom treatment ordered. - After discussion with the patient I will pursue respiratory/URI evaluation for cause of fevers prior to evaluation of postoperative complications. I feel that this is reasonable with the understanding that CT may be necessary to evaluate abdomen if no other obvious cause of fever is found. - Available labs and imaging reviewed and interpreted prior to end of shift. - Patient care handed off to overnight ED physician pending completion of respiratory evaluation as patient expressed hesitance to repeat CT scan unless absolutely necessary. Vital Signs: Vital signs: Vital Signs Temperature 98.6 F 05/21/21 21:49 Pulse Rate 101 H 05/21/21 20:36 Respiratory Rate 18 05/22/21 02:07 Blood Pressure 114/74 05/21/21 20:36 Pulse Oximetry 97 05/21/21 20:36 MDM - Fever Medical Records: Attestation: I reviewed the patient's medical records. Lab Data: Attestation: I reviewed the patient's lab results. Labs: Lab Results 05/21/21 05/21/21 05/21/21 22:40 22:40 22:40 WBC 12.6 10^3/uL H 10 ^3/uL (4.0-10.0) RBC 4.29 10^6/uL 10^6 /uL (4.1-5.3) Hgb 11.2 g/dL L g/dL (11.5-15.3) Hct 36.1 % L % (37.0-47.0) MCV 84.1 fl fl (81-99) MCH 26.1 pg L pg (28.0-34.0) MCHC 31.0 g/dL g/dL (30.0-36.0) RDW 14.6 % % (12.1-15.1) Plt Count 430 10^3/cmm H 10 ^3/cmm (130-400) MPV 9.3 fL fL (7.4-10.4) Neut % (Auto) 66.9 % % Lymph % (Auto) 21.7 % % [place] % (Auto) 8.3 % % Eos % (Auto) 2.3 % % Baso % (Auto) 0.4 % % Neut # (Auto) 8.45 10^3/uL H 10 ^3/uL (1.8-7.7) Lymph # (Auto) 2.7 10^3/uL 10^3/ uL (0.8-4.8) [place] # (Auto) 1.1 10^3/uL H 10^ 3/uL (0.2-0.9) Eos # (Auto) 0.3 10^3/uL 10^3/ uL (0.0-0.8) Baso # (Auto) 0.1 10^3/uL 10^3/ uL (0.0-0.1) Nucleated RBC % (a uto) 0 % % Nucleated RBCs # 0.0 /100WBC /100W BC Sodium 138 mmol/L mmol/L (136-145) Potassium 3.7 mmol/L mmol/L (3.5-5.1) Chloride 101 mmol/L mmol/L (98-107) Carbon Dioxide 21 mmol/L L mmol/ L (22-29) Anion Gap 19.7 H (5-19) BUN 13 mg/dL mg/dL (6-20) Creatinine 0.8 mg/dL mg/dL (0.5-0.9) GFR Calculation 82.1 mL/min L mL/ min (90-130) Glucose 128 mg/dL H mg/dL (65-115) Calculated Osmolal ity 288 mOsm/kg mOsm/ kg (285-295) Calcium 8.7 mg/dL mg/dL (8.5-10.5) Total Bilirubin 0.3 mg/dL mg/dL (0.15-1.2) AST 12 U/L U/L (0-32) ALT 89 U/L H U/L (0-33) Alkaline Phosphata se 152 IU/L H IU/L (35-105) C-Reactive Protein 30.7 mg/L H mg/L (0.0-4.9) Total Protein 7.2 g/dL g/dL (6.6-8.7) Albumin 4.1 g/dL g/dL (3.5-5.2) Globulin 3.1 g/dL g/dL (1.3-4.6) Influenza Type A A g Negative (Negative) Influenza Type B A g Negative (Negative) SARS-CoV-2 Ag (Rap id) Group A Strep Rapi d 05/21/21 05/21/21 22:40 22:45 WBC RBC Hgb Hct MCV MCH MCHC RDW Plt Count MPV Neut % (Auto) Lymph % (Auto) [place] % (Auto) Eos % (Auto) Baso % (Auto) Neut # (Auto) Lymph # (Auto) [place] # (Auto) Eos # (Auto) Baso # (Auto) Nucleated RBC % (a uto) Nucleated RBCs # Sodium Potassium Chloride Carbon Dioxide Anion Gap BUN Creatinine GFR Calculation Glucose Calculated Osmolal ity Calcium Total Bilirubin AST ALT Alkaline Phosphata se C-Reactive Protein Total Protein Albumin Globulin Influenza Type A A g Influenza Type B A g SARS-CoV-2 Ag (Rap id) Negative (Negative) Group A Strep Rapi d Negative (Negative) Discharge Plan Discharge Patient Disposition: Home Clinical Impression: Fever of unknown origin Infection of the upper respiratory tract Qualifiers: URI type: unspecified URI Qualified Code(s): J06.9 - Acute upper respiratory infection, unspecified Condition: Stable Prescriptions: No Action esomeprazole magnesium [Nexium 24HR] 20 mg capsule,delayed release(DR/EC) 20 mg PO DAILY RF: 0 azithromycin 500 mg tablet 500 mg PO DAILY 5 Days Qty: 9 RF: 0 hyoscyamine sulfate [Levsin] 0.125 mg tablet 0.125 mg PO Q6H PRN (Reason: dyspepsia) Qty: 20 RF: 0 Zofran 4 mg tablet 4 mg PO Q6H PRN (Reason: nausea and vomiting) Qty: 20 RF: 0 Colace 100 mg capsule 100 mg PO BID Qty: 30 RF: 0 hydrocodone-acetaminophen 5-325 mg tablet 1 tab PO Q6H PRN (Reason: pain) Qty: 20 RF: 0 Discharge Orders: Discharge ED (Routine); Ordered 05/22/21 Ordered By: Matthew Minor Referrals: Daisy Doherty MD [Primary Care Provider] - 4-7 days Patient Instructions: Fever in Adults (ED), Upper Respiratory Infection (ED) Activity Restrictions/Additional Instructions: Monitor temperature closely. Treat with Tylenol or ibuprofen as needed. Stay hydrated. Return for inability to control temperature, development of any symptoms such as shortness of breath, cough, sputum production, worsening sore throat, belly pain, other concerning symptoms Coding Level of Care Code ED Chief Service Dispatcher for Chg Fwd Documented by User: Matthew Minor, 05/22/21 02:41 HPI - Fever General: Chief Complaint: Fever Stated Complaint: Fever, Surgery a week ago Time Seen by Provider: 05/21/21 21:39 PFSH ED PFSH: Surgical History Previous section (01/10/13) Low transverse section. Diagnosis: Kristofer breech, Unsuccessful version. Performed by Dr. Yonis Langley at [facility] in [place], [place]. Confirmed LTCS with 2 layer closure. Status post laparoscopic cholecystectomy (05/09/21) Family History Mother Hypertension Family/Other Breast cancer Maternal aunt Father Hypertension Grandfather Heart disease Paternal and maternal Stroke maternal Denies family history of Colon cancer Diabetes Hyperlipidemia Uterine cancer Thyroid condition Social History Other details last substance use: Denies drug use Additional social history: Well balanced diet Course Vital Signs: Vital signs: Vital Signs Temperature 98.6 F 05/21/21 21:49 Pulse Rate 101 H 05/21/21 20:36 Respiratory Rate 18 05/22/21 02:07 Blood Pressure 114/74 05/21/21 20:36 Pulse Oximetry 97 05/21/21 20:36 MDM - Fever MDM Narrative: Medical decision making narrative: 36-year-old female checked out to me by the previous physician at shift change. This lady had undulating fever, for the past week or so following a cholecystectomy several days before that. Her white blood cell count is 12.6, without significant left shift. Platelet count is elevated. Other laboratory appears benign. Urinalysis is negative. Swabs for flu, strep, and COVID-[address] of the abdomen pelvis does not reveal any abscess, or other surgical complication, or source of fever. She does have children with upper respiratory symptoms at home. They do have a cat, but no history of scratches, no animal bites, no tick bites. She will be allowed home to monitor fevers Lab Data: Labs: Lab Results 05/21/21 05/21/21 05/21/21 22:40 22:40 22:40 WBC 12.6 10^3/uL H 10 ^3/uL (4.0-10.0) RBC 4.29 10^6/uL 10^6 /uL (4.1-5.3) Hgb 11.2 g/dL L g/dL (11.5-15.3) Hct 36.1 % L % (37.0-47.0) MCV 84.1 fl fl (81-99) MCH 26.1 pg L pg (28.0-34.0) MCHC 31.0 g/dL g/dL (30.0-36.0) RDW 14.6 % % (12.1-15.1) Plt Count 430 10^3/cmm H 10 ^3/cmm (130-400) MPV 9.3 fL fL (7.4-10.4) Neut % (Auto) 66.9 % % Lymph % (Auto) 21.7 % % [place] % (Auto) 8.3 % % Eos % (Auto) 2.3 % % Baso % (Auto) 0.4 % % Neut # (Auto) 8.45 10^3/uL H 10 ^3/uL (1.8-7.7) Lymph # (Auto) 2.7 10^3/uL 10^3/ uL (0.8-4.8) [place] # (Auto) 1.1 10^3/uL H 10^ 3/uL (0.2-0.9) Eos # (Auto) 0.3 10^3/uL 10^3/ uL (0.0-0.8) Baso # (Auto) 0.1 10^3/uL 10^3/ uL (0.0-0.1) Nucleated RBC % (a uto) 0 % % Nucleated RBCs # 0.0 /100WBC /100W BC Sodium 138 mmol/L mmol/L (136-145) Potassium 3.7 mmol/L mmol/L (3.5-5.1) Chloride 101 mmol/L mmol/L (98-107) Carbon Dioxide 21 mmol/L L mmol/ L (22-29) Anion Gap 19.7 H (5-19) BUN 13 mg/dL mg/dL (6-20) Creatinine 0.8 mg/dL mg/dL (0.5-0.9) GFR Calculation 82.1 mL/min L mL/ min (90-130) Glucose 128 mg/dL H mg/dL (65-115) Calculated Osmolal ity 288 mOsm/kg mOsm/ kg (285-295) Calcium 8.7 mg/dL mg/dL (8.5-10.5) Total Bilirubin 0.3 mg/dL mg/dL (0.15-1.2) AST 12 U/L U/L (0-32) ALT 89 U/L H U/L (0-33) Alkaline Phosphata se 152 IU/L H IU/L (35-105) C-Reactive Protein 30.7 mg/L H mg/L (0.0-4.9) Total Protein 7.2 g/dL g/dL (6.6-8.7) Albumin 4.1 g/dL g/dL (3.5-5.2) Globulin 3.1 g/dL g/dL (1.3-4.6) Influenza Type A A g Negative (Negative) Influenza Type B A g Negative (Negative) SARS-CoV-2 Ag (Rap id) Group A Strep Rapi d 05/21/21 05/21/21 22:40 22:45 WBC RBC Hgb Hct MCV MCH MCHC RDW Plt Count MPV Neut % (Auto) Lymph % (Auto) [place] % (Auto) Eos % (Auto) Baso % (Auto) Neut # (Auto) Lymph # (Auto) [place] # (Auto) Eos # (Auto) Baso # (Auto) Nucleated RBC % (a uto) Nucleated RBCs # Sodium Potassium Chloride Carbon Dioxide Anion Gap BUN Creatinine GFR Calculation Glucose Calculated Osmolal ity Calcium Total Bilirubin AST ALT Alkaline Phosphata se C-Reactive Protein Total Protein Albumin Globulin Influenza Type A A g Influenza Type B A g SARS-CoV-2 Ag (Rap id) Negative (Negative) Group A Strep Rapi d Negative (Negative) Discharge Plan Discharge Patient Disposition: Home Clinical Impression: Fever of unknown origin Infection of the upper respiratory tract Qualifiers: URI type: unspecified URI Qualified Code(s): J06.9 - Acute upper respiratory infection, unspecified Condition: Stable Prescriptions: No Action esomeprazole magnesium [Nexium 24HR] 20 mg capsule,delayed release(DR/EC) 20 mg PO DAILY RF: 0 azithromycin 500 mg tablet 500 mg PO DAILY 5 Days Qty: 9 RF: 0 hyoscyamine sulfate [Levsin] 0.125 mg tablet 0.125 mg PO Q6H PRN (Reason: dyspepsia) Qty: 20 RF: 0 Zofran 4 mg tablet 4 mg PO Q6H PRN (Reason: nausea and vomiting) Qty: 20 RF: 0 Colace 100 mg capsule 100 mg PO BID Qty: 30 RF: 0 hydrocodone-acetaminophen 5-325 mg tablet 1 tab PO Q6H PRN (Reason: pain) Qty: 20 RF: 0 Discharge Orders: Discharge ED (Routine); Ordered 05/22/21 Ordered By: Matthew Minor Referrals: Daisy Doherty MD [Primary Care Provider] - 4-7 days Patient Instructions: Fever in Adults (ED), Upper Respiratory Infection (ED) Activity Restrictions/Additional Instructions: Monitor temperature closely. Treat with Tylenol or ibuprofen as needed. Stay hydrated. Return for inability to control temperature, development of any symptoms such as shortness of breath, cough, sputum production, worsening sore throat, belly pain, other concerning symptoms Coding Level of Care Code ED Chief Service Dispatcher for Francie Phelps
[2021-05-21 21:49] VITALS: TEMP 37
--- NOTE | 2021-05-21 21:52 | XRR_ITS ---
PROCEDURE INFORMATION: Exam: XR Chest Exam date and time: 05/21/2021 9:52 PM Age: 36 years old Clinical indication: Fever; Additional info: Fever, sick exposures, ? covid TECHNIQUE: Imaging protocol: XR of the chest. Views: 1 view. COMPARISON: MRCP [id number] 05/09/2021 8:00 AM FINDINGS: Lungs: Unremarkable. No consolidation. Pleural spaces: Unremarkable. No pleural effusion. No pneumothorax. Heart/Mediastinum: Unremarkable. No cardiomegaly. Bones/joints: Unremarkable. XR/XR chest 1V portable [id number] IMPRESSION: No acute findings. Radiation Dose CTDIVOL = (mGy): DLP = (mGy-cm)
[2021-05-21 22:57] LABS: Basophils # 0.1 10^3/uL (0.0-0.1); Basophils % 0.4 %; Eosinophils # 0.3 10^3/uL (0.0-0.8); Eosinophils % 2.3 %; Hematocrit 36.1 % (37.0-47.0); Hemoglobin 11.2 g/dL (11.5-15.3); Lymphocytes # 2.7 10^3/uL (0.8-4.8); Lymphocytes % 21.7 %; Mean Corpuscular Hemoglobin 26.1 pg (28.0-34.0); Mean Corpuscular Volume 84.1 fl (81-99); Mean Platelet Volume 9.3 fL (7.4-10.4); Monocytes # 1.1 10^3/uL (0.2-0.9); Monocytes % 8.3 %; Neutrophils # 8.45 10^3/uL (1.8-7.7); Neutrophils % 66.9 %; Nucleated Red Blood Cells % 0 %; Platelet Count 430 10^3/cmm (130-400); Red Blood Count 4.29 10^6/uL (4.1-5.3); Red Cell Distribution Width 14.6 % (12.1-15.1); White Blood Count 12.6 10^3/uL (4.0-10.0)
[2021-05-21 23:32] LABS: Influenza A by IFA Negative (Negative); Influenza B by IFA Negative (Negative); SARS Covid-2 Antigen Negative (Negative)
[2021-05-21 23:46] LABS: Alanine Aminotransferase 89 U/L (0-33); Albumin Level 4.1 g/dL (3.5-5.2); Alkaline Phosphatase 152 IU/L (35-105); Anion Gap 19.7 (5-19); Aspartate Amino Transferase 12 U/L (0-32); Blood Urea Nitrogen 13 mg/dL (6-20); C Reactive Protein 30.7 mg/L (0.0-4.9); Calcium 8.7 mg/dL (8.5-10.5); Carbon Dioxide 21 mmol/L (22-29); Chloride 101 mmol/L (98-107); Globulin 3.1 g/dL (1.3-4.6); Glomerular Filtration Rate 82.1 mL/min (90-130); Glucose 128 mg/dL (65-115); Osmolality Calculated 288 mOsm/kg (285-295); Potassium 3.7 mmol/L (3.5-5.1); Sodium 138 mmol/L (136-145); Total Bilirubin 0.3 mg/dL (0.15-1.2); Total Protein 7.2 g/dL (6.6-8.7)
--- NOTE | 2021-05-22 00:13 | CTR_ITS ---
PROCEDURE INFORMATION: Exam: CT Abdomen And Pelvis With Contrast Exam date and time: 05/22/2021 12:13 AM Age: 36 years old Clinical indication: Prior surgery; Surgery date: <1 month; Patient HX: Lap aakash 05/09 C/O intermittent fevers and ruq tenderness; Additional info: Ruq pain fever post op TECHNIQUE: Imaging protocol: Computed tomography of the abdomen and pelvis with contrast. Radiation optimization: All CT scans at this facility use at least one of these dose optimization techniques: automated exposure control; mA and/or kV adjustment per patient size (includes targeted exams where dose is matched to clinical indication); or iterative reconstruction. Contrast material: OMNI 300; Contrast volume: 95 ml; Contrast route: INTRAVENOUS (IV); COMPARISON: MR MRCP [id number] 05/09/2021 8:00 AM RADIATION DOSE METRICS: Total DLP (mGy-cm): 1183.31 FINDINGS: Liver: Normal. No mass. Gallbladder and bile ducts: Cholecystectomy. Pancreas: Normal. No ductal dilation. Spleen: Normal. No splenomegaly. Adrenal glands: Normal. No mass. Kidneys and ureters: Normal. No hydronephrosis. Stomach and bowel: Constipation. Appendix: No evidence of appendicitis. Intraperitoneal space: Unremarkable. No free air. No significant fluid collection. Vasculature: Unremarkable. No abdominal aortic aneurysm. Lymph nodes: Unremarkable. No enlarged lymph nodes. Urinary bladder: Unremarkable as visualized. Reproductive: Prominent fluid in the uterine cavity may related to menstrual status. Bilateral follicular ovarian cysts. Bones/joints: Unremarkable. No acute fracture. Soft tissues: Unremarkable. CT/CT abdomen pelvis w con* [id number] IMPRESSION: 1. Negative for focal acute inflammatory process in the abdomen or pelvis. 2. Cholecystectomy. 3. Constipation. 4. Prominent fluid in the uterine cavity may related to menstrual status. 5. Bilateral follicular ovarian cysts. Radiation Dose CTDIVOL = (mGy): DLP = 1183.31 (mGy-cm)
[2021-05-22] MEDS: iohexol 300 mg/mL 100 mL Btl IV (00:26)
[2021-05-22 01:42] LABS: Rapid Strep A Test Negative (Negative)
[2021-05-22 02:07] VITALS: RESP 18
== END 2021-05-22 02:08 | disposition home or self-care (01) ==
PROVIDERS: Emergency Provider Emergency Medicine; PCP Family Medicine
DX: J06.9 Acute upper respiratory infection, unspecified (principal); Z20.822 Contact with and (suspected) exposure to COVID-19
CPT/HCPCS: 71045; 74177; 80053; 85025; 86140; 87040; 87081; 87426; 87804; 87880; 99283; Q9967

== ENCOUNTER → 2021-12-23 14:00 | Outpatient (BNVA) | payer BC, MEDICAID, SELFPAY | PROVIDERS: PCP Family Medicine; Visit Provider Obstetrics & Gynecology | DX: Z34.81 Encounter for supervision of other normal pregnancy, first trimester (principal) | CPT/HCPCS: 80307; 81003; 84315; 85027; 86592; 86762; 86803; 86850; 86900; 87086; 87340; 87806 ==

== ENCOUNTER → 2022-01-03 08:37 | Outpatient (BNVA) | payer MEDICAID, SELFPAY | PROVIDERS: PCP Family Medicine; Visit Provider Obstetrics & Gynecology | DX: O34.219 Maternal care for unspecified type scar from previous cesarean delivery (principal); Z98.891 History of uterine scar from previous surgery; Z3A.00 Weeks of gestation of pregnancy not specified | CPT/HCPCS: 84315; 87491; 87591 ==

== ENCOUNTER → 2022-01-10 15:17 | Outpatient (BNVA) | payer MEDICAID, SELFPAY | PROVIDERS: PCP Family Medicine; Visit Provider Obstetrics & Gynecology | DX: Z36.87 Encounter for antenatal screening for uncertain dates (principal) | CPT/HCPCS: 76801 ==

== ENCOUNTER → 2022-02-28 15:47 | Outpatient (BNVA) | payer MEDICAID, SELFPAY | PROVIDERS: PCP Family Medicine; Visit Provider Obstetrics & Gynecology | DX: Z34.92 Encounter for supervision of normal pregnancy, unspecified, second trimester (principal); Z3A.19 19 weeks gestation of pregnancy | CPT/HCPCS: 76805 ==

== ENCOUNTER → 2022-03-20 15:49 | Outpatient (BNVA) | payer MEDICAID, SELFPAY | PROVIDERS: PCP Family Medicine; Visit Provider Obstetrics & Gynecology | DX: Z34.92 Encounter for supervision of normal pregnancy, unspecified, second trimester (principal); Z3A.22 22 weeks gestation of pregnancy | CPT/HCPCS: 76816 ==

== ENCOUNTER → 2022-04-04 14:09 | Outpatient (BNVA) | payer MEDICAID, SELFPAY | PROVIDERS: PCP Family Medicine; Visit Provider Nurse Practitioner Women's Health | DX: O09.899 Supervision of other high risk pregnancies, unspecified trimester (principal); O35.BXX0 Maternal care for other (suspected) fetal abnormality and damage, fetal cardiac anomalies, not applicable or unspecified; O34.219 Maternal care for unspecified type scar from previous cesarean delivery; Z3A.00 Weeks of gestation of pregnancy not specified | CPT/HCPCS: 82950; 84315 ==

== ENCOUNTER → 2022-05-19 12:44 | Outpatient (BNVA) | payer MEDICAID, SELFPAY | PROVIDERS: PCP Family Medicine; Visit Provider Emergency Medicine | DX: B34.9 Viral infection, unspecified (principal) | CPT/HCPCS: 87400 ==

== ENCOUNTER → 2022-05-22 15:40 | Outpatient (BNVA) | payer MEDICAID, SELFPAY | PROVIDERS: PCP Family Medicine; Visit Provider Obstetrics & Gynecology | DX: O09.899 Supervision of other high risk pregnancies, unspecified trimester (principal) | CPT/HCPCS: 82247; 82248; 84315; 85027 ==

== ENCOUNTER → 2022-05-29 09:52 | Outpatient (BNVA) | payer MEDICAID, SELFPAY | PROVIDERS: PCP Family Medicine; Visit Provider Obstetrics & Gynecology | DX: O36.5930 Maternal care for other known or suspected poor fetal growth, third trimester, not applicable or unspecified (principal); Z3A.33 33 weeks gestation of pregnancy | CPT/HCPCS: 76816 ==

== ENCOUNTER → 2022-06-22 11:03 | Outpatient (BNVA) | payer MEDICAID, SELFPAY | PROVIDERS: PCP Family Medicine; Visit Provider Nurse Practitioner Women's Health | DX: Z34.93 Encounter for supervision of normal pregnancy, unspecified, third trimester (principal); Z3A.36 36 weeks gestation of pregnancy | CPT/HCPCS: 76815; 84315; 87081 ==

== ENCOUNTER → 2022-06-23 12:35 | Outpatient (BNVA) | payer MEDICAID, SELFPAY | PROVIDERS: PCP Family Medicine; Visit Provider Nurse Practitioner Women's Health | DX: O99.019 Anemia complicating pregnancy, unspecified trimester (principal) | CPT/HCPCS: 85025 ==

== ENCOUNTER 2022-06-27 05:30 | Outpatient (CLI) | payer MEDICAID, SELFPAY ==
[2022-06-27 05:36] VITALS: RESP 16
[2022-06-27 05:46] VITALS: BP 117/74; PULSE 86
[2022-06-27] MEDS: lactated ringers 1,000 ML 999 ML IV (05:57)
[2022-06-27 06:05] VITALS: BP 119/74; PULSE 89
[2022-06-27 06:13] LABS: Basophils # 0.1 10^3/uL (0.0-0.1); Basophils % 0.5 %; Eosinophils # 0.2 10^3/uL (0.0-0.8); Eosinophils % 1.5 %; Hematocrit 37.5 % (37.0-47.0); Hemoglobin 11.7 g/dL (11.5-15.3); Lymphocytes # 1.9 10^3/uL (0.8-4.8); Lymphocytes % 17.8 %; Mean Corpuscular HGB Conc 31.2 g/dL (30.0-36.0); Mean Corpuscular Hemoglobin 26.1 pg (28.0-34.0); Mean Corpuscular Volume 83.7 fl (81-99); Mean Platelet Volume 10.1 fL (7.4-10.4); Monocytes # 0.8 10^3/uL (0.2-0.9); Monocytes % 7.5 %; Neutrophils % 70.6 %; Nucleated Red Blood Cells % 0 %; Platelet Count 285 10^3/cmm (130-400); Red Blood Count 4.48 10^6/uL (4.1-5.3); Red Cell Distribution Width 18.5 % (12.1-15.1); White Blood Count 10.6 10^3/uL (4.0-10.0)
[2022-06-27 06:20] VITALS: BP 107/72; PULSE 90
[2022-06-27] MEDS: terbutaline 1 mg/mL INJ 0.25 MG SUBCUT (06:50)
--- NOTE | 2022-06-27 07:53 | P.PN_ITS ---
Subjective Subjective: Ms. Charlton is a 37 year old new/established patient with an LMP of 10/10/2021 RADHA 07/17/2022, placing her at 37 1/7 weeks today. Breech presentation. In for external version Vitals/I&O/Wt Last Vital Signs Pulse 90 06/27/22 06:20 Resp 16 06/27/22 05:36 BP 107/72 06/27/22 06:20 O2 Del Method 06/27/22 06:08 Weight last 48 hrs Weight 88.451 kg Physical Exam Narrative: GA: Alert and oriented ?3. Lungs: Clear to auscultation bilaterally. Heart: Regular rhythm and rate. Abdomen: Gravid, full the height equals dates, nontender. PALS SPECIALIST: SVE; dilation: 0 cm, effacement: 0%, station: -4, presentation: breech, membranes: IM. Extremities: no edema, no cyanosis, no calves pain. heart tracing: Basal rate: 156 bpm, Variability: moderate, Accelerations: present, Decelerations: absent, Contraction: none. Data 06/27/22 05:50 Other data: External Cephalic Version is a simple, non-invasive procedure performed when a fetus is not positioned optimally for delivery. External Cephalic Version is usually performed after 36 weeks, to maximize the chance that the repositioned fetus will not flip back to its original position. For this procedure, your clinician will adminster an intravenous medication to relax the uterus. You lie your back, and your clinician feels for your baby's head. When the head has been located, your clincian gently lifts the baby out of the mother's pelvis (hip bones) and attempt to gently rotate it into the proper (vertex) position. When the baby has been successfully rotated, the procedure is complete. Once a vertex presentation is achieved, the chances for a vaginal delivery increase. Benefits May permit vaginal delivery rather than section. Risks include, but are not limited to: Infection, bleeding, swelling, scarring, or pain at the IV insertion site. Discomfort as the clinician rotates the baby. Damage to the fetus or surrounding area. The fetus may revert to its original position or version may not be successful. Premature labor caused by rupture of the membranes. Emergency delivery due to distress. A&P Assessment and plan (1) Supervision of other high-risk : (2) Breech presentation, antepartum: Patient was counseled regarding breech presentation noted on the ultrasound performed last week. She was also counseled regarding external cephalic version vs delivery at 39 weeks. She elected for external cephalic version. She was counseled external cephalic version is a simple, non-invasive procedure performed when a fetus is not positioned optimally for vaginal delivery. External Cephalic Version is usually performed at 37 weeks, to maximize the ch ance that the repositioned fetus will not flip back to its original position. Risks include, but are not limited to: Infection, bleeding, swelling, scarring, or pain at the IV insertion site. Discomfort as the baby is being rotated. Damage to the fetus or surrounding area. The fetus may revert to its original position or version may not be successful. Labor caused by rupture of the membranes. Emergency delivery due to distress. She refers she does not want have a section and signed the informed consent. She was informed that an ultrasound examination will be performed (to confirm the position of the baby and that the amount of fluid around the baby is such that ECV is as safe as possible) and a recording of the baby's heart rate, an injection to relax the muscle of the womb may be given, making it easier to turn the baby. The patient was placed in the supine position, an NST was obtained. The abdomen was liberally coated with ultrasonic gel in order to decrease friction and lessen the chances of an overvigorous manipulation. Gentle disengagement perform ed. Forward Roll: Disengage the breech. The breech was disengaged and simultaneously pushed upward, gently guiding it vertex toward the pelvis. The forward roll atempted 3 time. Then proceeded to try a back roll/flip. Back flip: mobilize the breech and simultaneously pushed upward, gently guiding it vertex toward the pelvis. The back flip was not successful. An attempt external caphalic version was performed, 3 forward roll and 1 back roll were attmpted without success while montitoring the fetus with US and Doppler. No distress noted at any time during the attempts. The patietn understandt that a repeat C/D to be scheduled at 39 weeks. heart tracing before and after the procedure reactive. She may continue care as scheduled. The patient and her were both counseled regarding returning to L&D if any complications, decrease movements, persistent contractions, rupture of membranes, pain or bleeding. (3) Previous delivery, antepartum: Due to unsuccessful external version attempt a repeat CD is scheduled for at 8AM. (4) History of : Attestations Medical Necessity Statement*: In my professional opinion poor admitting diagnosis. Coding Level of Care Code Acute Counter Roller for g Fwd Diagnoses Supervision of other high-risk O09.899 Breech presentation, antepartum O32.1XX0 Previous delivery, antepartum O34.219 History of Z98.891
--- NOTE | 2022-06-27 13:21 | PC.NURSE ---
Ultrasound at bedside 0700 0735 started external cephalic version by , uses bedside ultrasound to confirm position, front roll attempted 0737 Start with front roll at this time 0738 Stop FHT 160's 0739 FHT 160's 0740 FHT 160's Ultrasound used by at this time to confirm placement of fetus, placement breech 0742 Start with attempt #2 at external cephalic version. scan with bedside ultrasound for placement of head. breech presentation 0743 stop FHT 150's 0744 Start attempt # 3 at external cephalic version. scan with bedside ultrasound for placement of head, breech presentation, front roll. 0745 Stop FHT 168 0747 FHT 155 0748 Start attempt # 4 at external cephalic version. scan with bedside ultrasound for placement of head, breech presentation, back roll. 0749 stop ultrasound used by for placement of fetus. Fetus breech. 0750 FHT 163
== END 2022-06-27 08:40 | disposition home or self-care (01) ==
LOC: OPOB 05:33 → OBGYN 05:33
PROVIDERS: PCP Family Medicine; Visit Provider Obstetrics & Gynecology
DX: O09.899 Supervision of other high risk pregnancies, unspecified trimester (principal); O32.1XX0 Maternal care for breech presentation, not applicable or unspecified; O34.219 Maternal care for unspecified type scar from previous cesarean delivery; Z3A.37 37 weeks gestation of pregnancy
CPT/HCPCS: 36415; 59025; 85025; 96372; 99211; J3105; J7120

== ENCOUNTER 2022-07-11 22:41 | Inpatient (IN) | payer MEDICAID, SELFPAY ==
[2022-07-11 22:48] VITALS: BP 118/59; PULSE 71; TEMP 36.2
[2022-07-12] VITALS (29 sets, daily range): BP systolic 99–146; BP diastolic 50–77; PULSE 71–99; RESP 16; TEMP 36.1–36.4; BMI 31.1
[2022-07-12 03:47] LABS: Basophils % 0.4 %; Eosinophils # 0.2 10^3/uL (0.0-0.8); Hematocrit 39.6 % (37.0-47.0); Hemoglobin 12.5 g/dL (11.5-15.3); Lymphocytes # 2.5 10^3/uL (0.8-4.8); Lymphocytes % 23.9 %; Mean Corpuscular HGB Conc 31.6 g/dL (30.0-36.0); Mean Corpuscular Volume 82.3 fl (81-99); Mean Platelet Volume 10.2 fL (7.4-10.4); Monocytes # 0.7 10^3/uL (0.2-0.9); Monocytes % 6.9 %; Neutrophils # 6.81 10^3/uL (1.8-7.7); Neutrophils % 65.9 %; Nucleated Red Blood Cells % 0 %; Platelet Count 295 10^3/cmm (130-400); Red Blood Count 4.81 10^6/uL (4.1-5.3); Red Cell Distribution Width 18.6 % (12.1-15.1); White Blood Count 10.3 10^3/uL (4.0-10.0)
[2022-07-12] MEDS: lactated ringers 1,000 ML 999 ML IV (04:06)
[2022-07-12] MEDS: terbutaline 1 mg/mL INJ 0.25 MG SUBCUT (04:55)
--- NOTE | 2022-07-12 05:19 | PC.NURSE ---
0508: Dr. Agosto at bedside. 0510: Dr. Agosto applied US gel and determined baby to have head under mother's sternum via US. 0511: Attempt 1 to turn baby. Unsuccessful. Dr. Agosto determined baby in same position as above via US. 0514: Attempt 2 to turn baby. Unsuccessful. Dr. Agosto determined baby in same position as above via US. He discussed with pt about proceeding with C/S.
--- NOTE | 2022-07-12 05:24 | PM.OPHPUD ---
Labor & Delivery H&P Update Date of Procedure: July 12, 2022 Date H&P Performed: 07/10/22 H&P update information: I have reviewed H&P completed within last 30 days, I have examined patient prior to procedure and No changes to prior documentation Admission Diagnosis: Preop diagnosis: IUP
--- NOTE | 2022-07-12 05:26 | P.PN_ITS ---
Subjective Subjective: Ms. Charlton is a 37 year old new/established patient with an LMP of 10/10/2021 RADHA 07/17/2022, placing her at 39 2/7 weeks today. Breech presentation. Admitted for repeat delivery. Vitals/I&O/Wt Last Vital Signs Temp 97.2 F L 07/11/22 22:48 Pulse 82 07/12/22 05:00 BP 137/77 07/12/22 05:00 O2 Del Method 07/12/22 03:40 Weight last 48 hrs Weight 90.265 kg Physical Exam Narrative: GA: Alert and oriented ?3. Lungs: Clear to auscultation bilaterally. Heart: Regular rhythm and rate. Abdomen: Gravid, full the height equals dates, nontender. HELICOPTER PILOT: SVE; dilation: 0 cm, effacement: 0%, station: -4, presentation: breech, membranes: IM. Extremities: no edema, no cyanosis, no calves pain. heart tracing: Basal rate: 156 bpm, Variability: moderate, Accelerations: present, Decelerations: absent, Contraction: none. Data 07/12/22 03:35 Other data: The patietn and her were counseled again an external Cephalic Version is a simple, non-invasive procedure performed when a fetus is not positioned optimally for delivery. External Cephalic Version is usually performed after 36 weeks, to maximize the chance that the repositioned fetus will not flip back to its original position. For this procedure, your clinician will administered an intravenous medication to relax the uterus. You lie your back, and your clinician feels for your baby's head. When the head has been located, your clincian gently lifts the baby out of the mother's pelvis (hip bones) and attempt to gently rotate it into the proper (vertex) position. When the baby has been successfully rotated, the procedure is complete. Once a vertex presentation is achieved, the chances for a vaginal delivery increase. Benefits May permit vaginal delivery rather than section. Risks include, but are not limited to: Infection, bleeding, swelling, scarring, or pain at the IV insertion site. Discomfort as the clinician rotates the baby. Damage to the fetus or surrounding area. The fetus may revert to its original position or version may not be successful. Premature labor caused by rupture of the membranes. Emergency delivery due to distress. A&P Assessment and plan (1) Breech presentation, antepartum: Patient was counseled regarding breech presentation noted on the ultrasound performed last week. She was also counseled regarding external cephalic version vs delivery at 39 weeks. She elected for external cephalic version. She was counseled external cephalic version is a simple, non-invasive procedure performed when a fetus is not positioned optimally for vaginal delivery. External Cephalic Version is usually performed at 37 weeks, to maximize the chance that the repositioned fetus will not flip back to its original position. Risks include, but are not limited to: Infection, bleeding, swelling, scarring, or pain at the IV insertion site. Discomfort as the baby is being rotated. Damage to the fetus or surrounding area. The fetus may revert to its original position or version may not be successful. Labor caused by rupture of the membranes. Emergency delivery due to distress. She refers she does not want have a section and signed the informed consent. She was informed that an ultrasound examination will be performed (to confirm the position of the baby and that the amount of fluid around the baby is such that ECV is as safe as possible) and a recording of the baby's heart rate, an in jection to relax the muscle of the womb may be given, making it easier to turn the baby. The patient was placed in the supine position, an NST was obtained. The abdomen was liberally coated with ultrasonic gel in order to decrease friction and lessen the chances of an overvigorous manipulation. Gentle disengagement performed. Forward Roll: Disengage the breech. The breech was disengaged and simultaneously pushed upward, gently guiding it vertex toward the pelvis. The forward roll attempted 2 time. An attempt external caphalic version was performed, 2 forward roll were attmpted without success while montitoring the fetus with US and Doppler. No distress noted at any time during the attempts. The patietn understand that a repeat C/D is now recommended heart tracing before and after the procedure was reactive. The patient and her were both counseled regarding proceeding with a repeat delivery (2) Previous delivery, antepartum: Due to unsuccessful external version attempt a repeat CD is scheduled for at 8AM. (3) History of : Attestations Medical Necessity Statement*: In my professional opinion per admitting d iagnosis Coding Level of Care Code Acute Code for Chg Fwd Diagnoses Breech presentation, antepartum O32.1XX0 Previous delivery, antepartum O34.219 History of Z98.891
--- NOTE | 2022-07-12 06:38 | P.ANESUD_ITS ---
Pre-Anesthetic Update Pre-Anesthetic Assessment: Date of Surgery/Procedure: 07/17/22 Preop Fani gnosis: IUP Any changes to Pre-Anesthetic Assessment?: No Changes from Pre-Anesthetic Assessment: None Last Intake: No fluids past midnight No food past 1900 Labs Last 48hrs: Short CBC 07/12/22 Range/Units 03:35 WBC 10.3 H (4.0-10.0) 10^3/ uL Hgb 12.5 (11.5-15.3) g/dL Hct 39.6 (37.0-47.0) % MCV 82.3 (81-99) fl Plt Count 295 (130-400) 10^3/c mm Neut % (Auto) 65.9 % Neut # (Auto) 6.81 (1.8-7.7) 10^3/u L Vitals: Temperature 97.2 F L 07/11/22 22:48 Pulse Rate 88 07/12/22 06:28 Pulse Rhythm 07/12/22 03:40 Respiratory Effort Non-Labored 07/12/22 03:40 Respiratory Depth Normal 07/12/22 03:40 Respiratory Patter n 07/12/22 03:40 Blood Pressure 120/66 07/12/22 06:28 Oxygen Delivery Me thod 07/12/22 03:40 Exam: Pre-Anes Outpt Exam: alert, oriented x 3, clear to auscultation bilaterally and regular rate & rhythm Cardiac Studies: No Data to Display
[2022-07-12] MEDS: famotidine 20 mg/2 mL INJ IVP (07:28)
[2022-07-12] MEDS: citric acid-sodium citrate 30 mL UDC PO (07:28)
[2022-07-12] MEDS: lactated ringers 1,000 ML 125 ML IV (07:28)
[2022-07-12] MEDS: metoclopramide 5 mg/mL SDV 2 mL 10 MG IVP (07:29)
[2022-07-12] MEDS: gentamicin inj 140 MG in sodium chloride 0.9% (100 ml) 100 ML 103.5 MG IV (07:33)
[2022-07-12] MEDS: clindamycin 900 MG/50 ML PREMIX 100 MG IV (07:33)
--- NOTE | 2022-07-12 09:09 | P.OP_ITS ---
Operative Report Date of procedure: July 12, 2022 Pre-op diagnosis: Preop Diagnosis IUP Previous delivery Breech presentation Post-op diagnosis: Same as above Procedure done: Repeat low transverse delivery Surgeon: Cornelio Agosto MD Estimated blood loss (mL): 800 Urine output (mL): 50 Procedure: After assuring informed consent, the patient was taken to the operating room and anesthesia was initiated. She was placed in the dorsal supine position with a left lateral tilt. The abdomen was prepped and draped in the usual sterile manner. A time-out procedure was performed. A Pfannenstiel skin incision was made with the scalpel and carried through to the underlying layer of fascia with the Bovie. The fascia was nicked in the midline and the incision extended laterally with the Magallanes scissors. The superior aspect of the fascial incision was then grasped with Viky clamps and elevated and the underlying rectus muscle dissected off bluntly and sharp with magallanes scissors dense adhesions. Attention was then turned to the inferior aspect of the incision which, in similar fashion, was grasped and tented up with Viky clamps and the rectus muscle dissected bluntly. The rectus muscles were then in the midline and the peritoneum identified, tented up and entered sharply with Metzenbaum scissors. The peritoneal incision was then extended superiorly and inferiorly with good visualization of the bladder. The Dragan O retractor was then inserted and the vesicouterine peritoneum identified, grasped with pickups and entered sharply with Metzenbaum scissors. This incision was then extended laterally and the bladder flap created digitally. The uterus incised in a low transverse fashion with the scalpel. The uterine incision was then extended with the bandage scissors. The infant was then delivered in the breech presentation atraumatically. The nose and the mouth were suctioned with bulb and the cord clamped and cut. The cord was normal and had three vessels. Amniotic fluid was clear. The placenta was then removed manually and the uterus exteriorized and cleared of all clots and debris. The uterine incision was repaired with 0 Vicryl in a running-locked fashion. A second layer of the same suture was used to obtain excellent hemostasis. The gutters were cleared of all clots. The uterus was then returned to the abdomen. The rectus muscles were approximated with 3-0 chromic gut. The fascia was reapproximated with 0 Vicryl in an interrupted running fashion. The skin was c losed with Insorb?s subcuticular absorbable vera. The incision area was infiltrated with Exparel for pain management. The patient tolerated the procedure well. The sponge, lap and needle counts were correct times three.
--- NOTE | 2022-07-12 10:40 | PC.NURSE ---
patient in OR for
--- NOTE | 2022-07-12 10:42 | PC.NURSE ---
Patient in OR
[2022-07-12] MEDS: ketorolac 30 mg/mL INJ IVP ×2 (15:36→21:31)
--- NOTE | 2022-07-12 20:08 | PC.NURSE ---
To catheter removed at 1930 by this RN.
[2022-07-12 21:11] LABS: Hematocrit 34.9 % (37.0-47.0); Hemoglobin 10.9 g/dL (11.5-15.3); Mean Corpuscular HGB Conc 31.2 g/dL (30.0-36.0); Mean Corpuscular Hemoglobin 26.4 pg (28.0-34.0); Mean Corpuscular Volume 84.5 fl (81-99); Mean Platelet Volume 10.7 fL (7.4-10.4); Platelet Count 237 10^3/cmm (130-400); Red Blood Count 4.13 10^6/uL (4.1-5.3); Red Cell Distribution Width 18.6 % (12.1-15.1); White Blood Count 13.7 10^3/uL (4.0-10.0)
[2022-07-13 04:30] VITALS: BP 95/53; PULSE 71
[2022-07-13 04:32] VITALS: RESP 15; TEMP 36.6
[2022-07-13] MEDS: acetaminophen 325 mg Tablet 650 MG PO ×2 (04:35→10:17)
[2022-07-13] MEDS: docusate sodium 100 mg Capsule PO (10:17)
[2022-07-13] MEDS: prenatal vitamin Capsule 1 CAP PO (10:18)
[2022-07-13 10:20] VITALS: BP 112/57; PULSE 82
[2022-07-13] MEDS: ibuprofen 800 mg tablet PO (14:49)
[2022-07-13 16:26] VITALS: BP 101/63; PULSE 82
--- NOTE | 2022-07-13 17:27 | P.DS_ITS ---
Discharge Providers FREQUENCY CHECKER Date of Admission: 07/11/22 22:41 Date of Discharge: 07/13/22 Attending Provider at Admission: Cornelio Agosto MD Attending Provider at Discharge: Cornelio Agosto MD Primary Care Provider: Daisy Doherty MD Diagnoses at Discharge Discharge Diagnosis (1) Breech presentation, antepartum: Status: Acute (2) Previous delivery, antepartum: Status: Acute (3) History of : Status: Acute Reason for Visit Reason for Visit: SCHEDULED Hospital Course Hospital Course Ms. Charlton is a 37 year old established patient with an LMP of 10/10/2021 RADHA 07/17/2022, admitted for repeat due to malpresentation with breech presentation after 2 prior attempts at an external version. This activity was performed without complications. Postop day 1 uneventful. She is afebrile and hemodynamically stable postoperative day 1. Tolerating diet well. Ambulating without difficulty. She is requesting to go home prior to the 48 hours of usual observation. She was counseled on pelvic rest for 6 weeks (no sex, no tampons, no vaginal douches). Return to the emergency room if any fever, increased bleeding or pain. She was advised to follow-up in 2 weeks. Information Peripartum Data: Delivery Method: Physical Exam Narrative: GA; alert and oriented x 3 HEENT: normal Breasts: engorged Nipples - skin intact Lungs; clear to auscultation Heart: regular rhythm, no murmurs. Abd: Appropriately tender. BS+. Uterine fundus below umbilicus. No Fundal Tenderness, incision clean and dry, no redness, pain. Perineum: normal lochia. Extremities: no edema, no cyanosis, no tenderness. History History History 5 Term 4 0 Miscarriages/Ectopic 0 Living Children 4 Discharge Data Studies Completed and Pending Laboratory Results WBC 13.7 10^3/uL (4.0-10.0) H 07/12/22 20:44 RBC 4.13 10^6/uL (4.1-5.3) 07/12/22 20:44 Hgb 10.9 g/dL (11.5-15.3) L 07/12/22 20:44 Hct 34.9 % (37.0-47.0) L 07/12/22 20:44 MCV 84.5 fl (81-99) 07/12/22 20:44 MCH 26.4 pg (28.0-34.0) L 07/12/22 20:44 MCHC 31.2 g/dL (30.0-36.0) 07/12/22 20:44 RDW 18.6 % (12.1-15.1) H 07/12/22 20:44 Plt Count 237 10^3/cmm (130-400) 07/12/22 20:44 MPV 10.7 fL (7.4-10.4) H 07/12/22 20:44 Neut % (Auto) 65.9 % 07/12/22 03:35 Lymph % (Auto) 23.9 % 07/12/22 03:35 [place] % (Auto) 6.9 % 07/12/22 03:35 Eos % (Auto) 2.0 % 07/12/22 03:35 Baso % (Auto) 0.4 % 07/12/22 03:35 Neut # (Auto) 6.81 10^3/uL (1.8-7.7) 07/12/22 03:35 Lymph # (Auto) 2.5 10^3/uL (0.8-4.8) 07/12/22 03:35 [place] # (Auto) 0.7 10^3/uL (0.2-0.9) 07/12/22 03:35 Eos # (Auto) 0.2 10^3/uL (0.0-0.8) 07/12/22 03:35 Baso # (Auto) 0.0 10^3/uL (0.0-0.1) 07/12/22 03:35 Nucleated RBC % (auto) 0 % 07/12/22 03:35 Nucleated RBCs # 0.0 /100WBC 07/12/22 03:35 Vitals Last Vital Signs Temp 97.9 F 07/13/22 04:32 Pulse 82 07/13/22 16:26 Resp 15 07/13/22 04:32 BP 101/63 07/13/22 16:26 O2 Del Method 07/12/22 03:40 Discharge Plan Discharge Patient Disposition: Home Condition: Stable Prescriptions: New hydrocodone-acetaminophen 5-325 mg tablet 1 tab PO Q4H PRN (Reason: pain) Qty: 20 0RF acetaminophen 325 mg capsule 325 mg PO Q4H PRN (Reason: fever or pain) Qty: 60 0RF docusate sodium [Colace] 100 mg capsule 100 mg PO BID Qty: 60 0RF ferrous sulfate [Iron (ferrous sulfate)] 325 mg (65 mg iron) tablet 325 mg PO BID Qty: 60 0RF ibuprofen 800 mg tablet 800 mg PO TID PRN (Reason: pain) Qty: 60 0RF Continued prenat.vits,adolfo,iqi-znig-xhntz Tablet 1 tab PO DAILY ferrous sulfate 325 mg (65 mg iron) tablet 325 mg PO BID Qty: 180 1RF Discharge Orders: Discharge Order (Routine); Ordered 07/13/22 Ordered By: Cornelio Agosto Referrals: Cornelio Agosto MD [Physician] - 2 weeks Discharge Diet: Usual diet Discharge Activity: Limit activity as instructed Patient Instructions: Opioid Safety, (GEN), Caring for Your Baby (ED), Choosing Between Vaginal After () or Repeat... (GEN), Your [place]'s Appearance (GEN), TTN (Transient Tachypnea of ) (IP) Activity Restrictions/Additional Instructions: 1. Please call [facility] on next working day to make your post-operative appointment in 2 weeks. 2. Please stay home until you come back to the clinic on first post-operative check up. 3. Please follow instructions on your medications CAREFULLY. 4. If you have abdominal incision, do not cover it unless dressing is necessary because of drainage. OK to shower, but avoid bath. Leave steri-strips until they fall off. If they are still on one week after surgery, you may remove them. 5. If you had vaginal surgery or vaginal repair, Dr. Agosto may instruct you to take SITZ bath. 6. Yellow, blood tinged odorous vaginal discharge is usually normal after hysterectomy or vaginal surgeries. 7. No sexual intercourse, tampons, or douches until you are completely released from the post-operative care. 8. Avoid constipation by eating right and maybe using some Metamucil or Milk of Magnesia. 9. All prescription refills are given during the working hours. Please do no wait till it runs out. Call the clinic at [phone] before your medication runs out. The clinic will get in touch with your doctor to prescribe medications if necessary. 10. Please remain within 40 mile radius from our hospital because emergencies do happen now and then during the post-operative period. 11. If you have stairs at home, take one step at a time slowly and minimize the number of trips. It helps to stay in one floor for the next few days. No lifting except what you can lift by one hand until you are released from the post-operative care. 12. Driving is discouraged until you are well healed. It may be 3-4 weeks before you feel strong enough to drive. You should be able to turn and look through the rear window without pain and you should be able to push the brake pedal very hard without pain before you drive. No fast rules, but SAFETY should be your primary concern. DO NOT drive if you are on sedating medications such as narcotics. 13. Call the clinic (during working hours) to make urgent appointment or go to the Emergency room, if any of the following occurs: i. Vaginal bleeding becomes heavy, more than a period. ii. Incision becomes red and sore, or drains pus. iii. Your temperature is over 100.4 or you have chill. iv. IV site becomes red and swollen (a little ``knot?? is usually OK) v. Persistent nausea and vomiting vi. Persistent constipation or diarrhea vii. Rash or allergic reaction to medications. Discharge Attestations FREQUENCY CHECKER Time Spent in Discharge Care*: greater than 30 min Coding Level of Care Code Acute Code for Chg Fwd Diagnoses Breech presentation, antepartum O32.1XX0 Previous delivery, antepartum O34.219 History of Z98.891
[2022-07-13 19:00] VITALS: BP 111/72; PULSE 117; RESP 18; TEMP 36.8
== END 2022-07-13 19:02 | disposition home or self-care (01) | DRG 788 ==
LOC: OPOB 22:41 → OBGYN 22:43
PROVIDERS: Admitting Provider Obstetrics & Gynecology; PCP Family Medicine; Visit Provider Obstetrics & Gynecology
DX: O32.1XX0 Maternal care for breech presentation, not applicable or unspecified (principal); Z3A.39 39 weeks gestation of pregnancy; Z37.0 Single live birth; O34.219 Maternal care for unspecified type scar from previous cesarean delivery; O99.02 Anemia complicating childbirth; D50.9 Iron deficiency anemia, unspecified
CPT/HCPCS: 36415; 51702; 59025; 59409; 59412; 85025; 85027; 96372; 96374; 96376; 98960; C9290; J1580; J1885; J2274; J2370; J2405; J2590; J2765; J3010; J3105; J3490; J7120

== ENCOUNTER → 2023-03-29 13:10 | Outpatient (BNVA) | payer MEDICAID, SELFPAY | PROVIDERS: PCP Clinical Nurse Specialist Adult Health; Visit Provider Clinical Nurse Specialist Adult Health | DX: F51.02 Adjustment insomnia (principal) | CPT/HCPCS: 84443 ==

== ENCOUNTER → 2024-03-30 13:17 | Outpatient (BNVA) | payer MEDICAID, SELFPAY | PROVIDERS: PCP Clinical Nurse Specialist Adult Health; Visit Provider Emergency Medicine | DX: J02.9 Acute pharyngitis, unspecified (principal) | CPT/HCPCS: 87880 ==

== ENCOUNTER 2025-01-12 13:38 | Outpatient (CLI) | payer OTHER, SELFPAY ==
--- NOTE | 2025-01-12 14:00 | MM_ITS ---
WS: [id number] BILATERAL 3D TOMOSYNTHESIS DIGITAL DIAGNOSTIC MAMMOGRAPHY WITH CAD CLINICAL INFORMATION: MASTODYNIA,LUMP HISTORY: RIGHT breast lumps COMPARISON: Baseline TECHNIQUE: Bilateral CC, MLO, and ML views. FINDINGS: Scattered fibroglandular densities bilaterally. Benign lucent centered calcification LEFT breast. Palpable markers lower inner quadrant RIGHT breast. Normal underlying parenchymal tissue. Ultrasound of this area is pending. ULTRASOUND BREAST RIGHT TECHNIQUE: Ultrasound right breast focused area of concern. CLINICAL INFORMATION: MASTODYNIA,LUMP FINDINGS: Ultrasound RIGHT breast area of concern near the 6 o'clock position. Normal underlying parenchymal tissue. No cystic or solid lesions. No suspicious lesions to target for biopsy. Findings are benign. Recommend annual screening mammography age 40 MM/MM diag BI tomosynthesis [id number] IMPRESSION: DENSITY: There are scattered areas of fibroglandular density. BI-RADS: 2 - Benign. FOLLOW UP: Age 40 Recommend annual screening mammography age 40
--- NOTE | 2025-01-12 14:30 | US_ITS ---
WS: [id number] BILATERAL 3D TOMOSYNTHESIS DIGITAL DIAGNOSTIC MAMMOGRAPHY WITH CAD CLINICAL INFORMATION: MASTODYNIA,LUMP HISTORY: RIGHT breast lumps COMPARISON: Baseline TECHNIQUE: Bilateral CC, MLO, and ML views. FINDINGS: Scattered fibroglandular densities bilaterally. Benign lucent centered calcification LEFT breast. Palpable markers lower inner quadrant RIGHT breast. Normal underlying parenchymal tissue. Ultrasound of this area is pending. ULTRASOUND BREAST RIGHT TECHNIQUE: Ultrasound right breast focused area of concern. CLINICAL INFORMATION: MASTODYNIA,LUMP FINDINGS: Ultrasound RIGHT breast area of concern near the 6 o'clock position. Normal underlying parenchymal tissue. No cystic or solid lesions. No suspicious lesions to target for biopsy. Findings are benign. Recommend annual screening mammography age 40 US/US breast RT limited* [id number] IMPRESSION: DENSITY: There are scattered areas of fibroglandular density. BI-RADS: 2 - Benign. FOLLOW UP: Age 42 Recommend annual screening mammography age 40
== END 2025-01-12 13:39 | disposition home or self-care (01) ==
LOC: RAD 13:40
PROVIDERS: PCP Clinical Nurse Specialist Adult Health; Visit Provider Clinical Nurse Specialist Adult Health
DX: N64.4 Mastodynia (principal)
CPT/HCPCS: 76642; 77062; G0279

== ENCOUNTER → 2025-06-06 11:50 | Outpatient (BNVA) | payer OTHER, SELFPAY | PROVIDERS: PCP Clinical Nurse Specialist Adult Health | DX: J02.9 Acute pharyngitis, unspecified (principal) | CPT/HCPCS: 87880 ==